=== PATIENT | male | born 1955 | race Caucasian/White ===

== ENCOUNTER 2020-10-11 18:36 | Observation (INO) | payer MEDICARE, SELFPAY ==
[2020-10-11] VITALS (11 sets, daily range): BP systolic 140–214; BP diastolic 69–100; PULSE 94–113; RESP 15–26; TEMP 36.6; O2SAT 84–97; BMI 27.4
--- NOTE | 2020-10-11 18:48 | XRR_ITS ---
PROCEDURE INFORMATION: Exam: XR Chest Exam date and time: 10/11/2020 6:56 PM Age: 64 years old Clinical indication: Shortness of breath; Additional info: SOB TECHNIQUE: Imaging protocol: XR of the chest. Views: 1 view. Total images: 1 COMPARISON: No relevant prior studies available. FINDINGS: Lungs: No visible active interstitial or alveolar airspace disease. COPD/chronic bronchitis/centrilobular emphysema. Mild senile fibrosis lung bases. Pleural spaces: Unremarkable. No pleural effusion. No pneumothorax. Heart/Mediastinum: Cardiac structures and configuration with evidence of mild microcardia. Bones/joints: Unremarkable. XR/XR chest 1V portable [id number] IMPRESSION: COPD/chronic bronchitis/centrilobular emphysema.
--- NOTE | 2020-10-11 18:51 | ED_ITS ---
HPI - SOB/Dyspnea General: Chief Complaint: Shortness of Breath/Dyspnea Stated Complaint: THEODORE CASTAÑEDA has copd Time Seen by Provider: 10/11/20 18:45 Source: patient Mode of arrival: ambulatory Limitations: no limitations History of Present Illness: HPI Narrative: 64-year-old male who has a history of COPD states has had increasing shortness of breath over the last week with a getting much worse today. He states that today has been feeling very short of breath with any activity. He is requiring 2 L of oxygen here and is tachypneic and wheezing currently. He states he has a rescue inhaler at home. He states that he has had a nonproductive cough and denies any fever. Denies any chest pain. States it has been worse with activity and improved with rest. Associated symptoms: Deny abdominal pain, chest pain, fever(s), nausea or vomiting Review of Systems Const: Denies: fever(s), chills, body aches or change in appetite Eyes: Denies: blurry vision or eye discomfort ENMT: Denies: throat pain or dental pain Card: Denies: chest pain Resp: Reports: dyspnea, non-productive cough and wheezing GI: Denies: abdominal pain, nausea, vomiting or diarrhea : Denies: dysuria Musc: Denies: neck pain or back pain Skin/Breast: Denies: rash Neuro: Denies: headache(s) Psych: Denies: depression [place]/Lymph: Denies: easy bruising All/Imm: Denies: urticaria Physical Exam Const: COMMON NORMALS: no acute distress, patient oriented x3 and healthy appearing HENMT: COMMON NORMALS: normocephalic and atraumatic HEAD & SCALP: normocephalic and atraumatic Eye: COMMON NORMALS: Equal, round and reactive pupils present and EOMs intact bilaterally PUPIL: Yes Equal, round and reactive pupils present Neck/C-Spine: COMMON NORMALS: full ROM and supple Chest: COMMONS NORMALS: normal inspection of the chest and normal palpation of entire chest wall Resp: COMMON NORMALS: No retractions and No use of accessory muscles EFFORT & INSPECTION: Yes tachypneic AUSCULTATION: wheezes Cardio: COMMON NORMALS: regular rate, regular rhythm and No murmurs present (Cardio) RATE: regular rate RHYTHM: regular rhythm GI: COMMON NORMALS: Normal to inspection, nondistended, normoactive bowel sounds present, Soft to palpation, non-tender and no masses PALPATION: Yes Soft to palpation Extremity: COMMON NORMALS: normal to inspection and full ROM Neuro: COMMON NORMALS: patient oriented x3, moves all extremities and no focal motor deficits Psych: COMMON NORMALS: mental status grossly normal, Normal thought process present and cooperative THOUGHT PROCESS: Normal thought process present Skin: COMMON NORMALS: no rashes or lesions noted and no wounds GENERAL SKIN EXAM: no rashes or lesions noted Course Vital Signs: Vital signs: Vital Signs Temperature 97.9 F 10/11/20 18:42 Pulse Rate 107 H 10/11/20 19:57 Respiratory Rate 20 H 10/11/20 19:57 Blood Pressure 154/76 10/11/20 19:57 Pulse Oximetry 94 10/11/20 20:05 MDM - SOB/Dyspnea MDM Narrative: Medical decision making narrative: Patient presents here with a COPD exacerbation. Patient did have quite a bit of wheezing that improved with his initial breathing treatment. I had RT come and ambulate him and he desaturated to 84% and is having wheezing again. I spoke to the hospitalist will admit for observation for continued breathing treatments. His blood work here is normal he has no signs of pneumonia. He has had no chest pain. Lab Data: Labs: Lab Results 10/11/20 10/11/20 Range/Units 18:52 18:52 WBC 9.6 (4.0-10.0) 10^3/ uL RBC 5.71 H (4.1-5.3) 10^6/u L Hgb 17.9 H (11.7-16.6) g/dL Hct 51.5 (42.0-52.0) % MCV 90.2 (80-94) fL MCH 31.3 (28.0-34.0) pg MCHC 34.8 (30.0-36.0) g/dL RDW 13.2 (12.1-15.1) % Plt Count 314 (130-400) 10^3/c mm MPV 10.3 (7.4-10.4) fL Neut % (Auto) 68.0 % Lymph % (Auto) 17.3 % [place] % (Auto) 7.9 % Eos % (Auto) 5.3 % Baso % (Auto) 1.0 % Neut # (Auto) 6.49 (1.8-7.7) 10^3/u L Lymph # (Auto) 1.7 (0.8-4.8) 10^3/u L [place] # (Auto) 0.8 (0.2-0.9) 10^3/u L Eos # (Auto) 0.5 (0.0-0.8) 10^3/u L Baso # (Auto) 0.1 (0.0-0.1) 10^3/u L Nucleated RBC % (a uto) 0 % Nucleated RBCs # 0.0 /100WBC Sodium 138 (136-145) mmol/L Potassium 4.5 (3.5-5.1) mmol/L Chloride 102 (98-107) mmol/L Carbon Dioxide 23 (22-29) mmol/L Anion Gap 17.5 (5-19) BUN 12 (8-23) mg/dL Creatinine 0.6 L (0.7-1.2) mg/dL GFR Calculation 135.2 H (90-130) mL/min Glucose 201 H (65-115) mg/dL Calculated Osmolal ity 291 (285-295) mOsm/k g Calcium 8.7 (8.5-10.5) mg/dL Total Bilirubin 0.3 (0.15-1.2) mg/dL AST 18 (0-40) U/L ALT 29 (0-41) U/L Alkaline Phosphata se 94 (40-130) IU/L NT-Pro-B Natriuret Pep 21 (0-125) pg/mL Total Protein 7.2 (6.6-8.7) g/dL Albumin 4.7 (3.5-5.2) g/dL Globulin 2.5 (1.3-4.6) g/dL Imaging Data^: CXR: Attestation: I personally reviewed and interpreted this imaging study as follows: Radiologist's impression: [address] [address] XRay Report Signed Patient: Kenn Casanova Unit #: [id number] : 1955 Age/Sex: 64 / M ADM Date: 10/11/20 Loc: ER Room/Bed: Attending Dr: Ordering Provider/Ordering MD: Rossana Brown MD Date of Service: 10/11/20 Procedure(s): XR chest 1V portable [id number] Accession Number(s): [id number] Report Number: [id number] PROCEDURE INFORMATION: Exam: XR Chest Exam date and time: 10/11/2020 6:56 PM Age: 64 years old Clinical indication: Shortness of breath; Additional info: SOB TECHNIQUE: Imaging protocol: XR of the chest. Views: 1 view. Total images: 1 COMPARISON: No relevant prior studies available. FINDINGS: Lungs: No visible active interstitial or alveolar airspace disease. COPD/chronic bronchitis/centrilobular emphysema. Mild senile fibrosis lung bases. Pleural spaces: Unremarkable. No pleural effusion. No pneumothorax. Heart/Mediastinum: Cardiac structures and configuration with evidence of mild microcardia. Bones/joints: Unremarkable. XR/XR chest 1V portable [id number] IMPRESSION: COPD/chronic bronchitis/centrilobular emphysema. EKG Data^: EKG 1: Attestation: I personally reviewed and interpreted this EKG as follows: EKG Interpretation Date: 10/11/20 EKG interpretation time: 18:51 Interpretation: nsr hr [address] or t wave abnormalities qrs 92 qtc 383 Discharge Plan Discharge Patient Disposition: Admitted As Inpatient Clinical Impression: COPD exacerbation Condition: Stable Coding Level of Care Code ED Quality Control Engineer for Chg Fwd Exam Comprehensive
[2020-10-11 18:59] LABS: Basophils # 0.1 10^3/uL (0.0-0.1); Eosinophils # 0.5 10^3/uL (0.0-0.8); Eosinophils % 5.3 %; Hematocrit 51.5 % (42.0-52.0); Hemoglobin 17.9 g/dL (11.7-16.6); Lymphocytes # 1.7 10^3/uL (0.8-4.8); Lymphocytes % 17.3 %; Mean Corpuscular HGB Conc 34.8 g/dL (30.0-36.0); Mean Corpuscular Hemoglobin 31.3 pg (28.0-34.0); Mean Corpuscular Volume 90.2 fL (80-94); Mean Platelet Volume 10.3 fL (7.4-10.4); Monocytes # 0.8 10^3/uL (0.2-0.9); Monocytes % 7.9 %; Neutrophils # 6.49 10^3/uL (1.8-7.7); Nucleated Red Blood Cells % 0 %; Platelet Count 314 10^3/cmm (130-400); Red Blood Count 5.71 10^6/uL (4.1-5.3); Red Cell Distribution Width 13.2 % (12.1-15.1); White Blood Count 9.6 10^3/uL (4.0-10.0)
[2020-10-11 19:23] LABS: Alanine Aminotransferase 29 U/L (0-41); Albumin Level 4.7 g/dL (3.5-5.2); Alkaline Phosphatase 94 IU/L (40-130); Anion Gap 17.5 (5-19); Aspartate Amino Transferase 18 U/L (0-40); Blood Urea Nitrogen 12 mg/dL (8-23); Calcium 8.7 mg/dL (8.5-10.5); Carbon Dioxide 23 mmol/L (22-29); Chloride 102 mmol/L (98-107); Globulin 2.5 g/dL (1.3-4.6); Glomerular Filtration Rate 135.2 mL/min (90-130); Glucose 201 mg/dL (65-115); Osmolality Calculated 291 mOsm/kg (285-295); Potassium 4.5 mmol/L (3.5-5.1); Sodium 138 mmol/L (136-145); Total Bilirubin 0.3 mg/dL (0.15-1.2); Total Protein 7.2 g/dL (6.6-8.7)
[2020-10-11] MEDS: ipratropium-albuterol 3 mL Neb INHALATION (19:26)
[2020-10-11 19:29] LABS: NT Pro B Type Natriuretic Pept 21 pg/mL (0-125)
--- NOTE | 2020-10-11 20:52 | P.HP_ITS ---
Providers/Chief Complaint Admitting Physician: Sheeba Lagos MD Primary Care Provider: Amber in [facility] Chief Complaint: SOB, PT has copd History of Present Illness Kenn Casanova is a 64 year old male who presented to the emergency room chief complaint of difficulty breathing. Symptoms have actually been going on for approximately 3 weeks. He saw his primary care provider on September 29 for similar symptoms of increasing shortness of breath, cough both productive and nonproduc tive, wheezing. PCP started him on Trelegy and a rescue inhaler. In addition he was given 10 days of doxycycline which he completed a couple of days ago. He was not given any steroids. He states his breathing is best in the morning after he takes the Trelegy but then is worse later in the day. He has known COPD that was diagnosed approximately 15 years ago when he quit smoking. He had been on Spiriva and albuterol as needed in the past but had not been taking either of them. He has never required hospitalization for anything, an ER visit or even had an IV. He is never required any oxygen. Sputum is sometimes clear sometimes greenish in color. Denies any hemoptysis. No pleuritic pain. He does describe increasing difficulty with shortness of breath on exertion over the last 2 years or so. Approximately 2 years ago he could walk about 200 feet before starting to feel short of breath. It is now down to about 100 feet and the last few weeks has been even less than that. He does not describe any chest pain. The progressive difficulty with exertion has limited his activity some. He denies any fevers. He has not had Covid, Covid vaccination or known exposure to anyone with Covid. He occasionally has some swelling in his ankles but denies significant orthopnea or PND. He does have nocturia 2-3 times a night. In the emergency room he received continuous breathing treatment and 125 mg of Solu-Medrol and clinically feels significantly better than he has in the last c ouple of weeks from a breathing standpoint. He was noted to have low oxygen levels on arrival to the emergency room in the mid 80s. He was put on 2 L by nasal cannula but after breathing treatment and steroids this was able to be taken off. Room air saturations at rest were okay. With exertion however saturations were again noted to have dropped into the mid 80s. He is being admitted to observation status for continued treatment and further evaluation under the circumstances. Family history includes his father having had quadruple bypass in his 60s. Patient has diabetes mellitus type 2 and dyslipidemia for which she is on statin therapy but no other significant medical history known to date. Review of Systems Const: Denies: fever(s), chills or change in weight Eyes: Denies: change in vision ENMT: Denies: throat pain or nasal congestion Card: Reports: swelling of feet/ankles and dyspnea on exertion (getting prog ressively worse over time prior to acute events); Denies: chest pain, palpitations, edema, lightheadedness or orthopnea Resp: Reports: dyspnea, productive cough, wheezing and change in phlegm color (green); Denies: pain on inspiration or hemoptysis GI: Denies: abdominal pain, nausea, vomiting, diarrhea, constipation, hematochezia or melena : Reports: urinary frequency and other (nocturia x 2-3); Denies: hematuria Musc: Denies: other (complaints of joint or muscle pain) Skin/Breast: Denies: rash or sores Neuro: Denies: headache(s), numbness in extremities or difficulty walking Psych: Denies: anxiety or depression [place]/Lymph: Denies: easy bruising or easy bleeding Medications/Allergies Home Medications Medication Instructions Recorded Confirmed Last Taken Type albuterol sulfate [ProAir HFA] 2 puff INHALATION Q4H PRN 10/11/20 10/11/20 10/11/20 History aspirin [Aspir-81] 81 mg PO DAILY@69910/11/20 10/11/20 10/11/20 History atorvastatin 10 mg PO DAILY@199910/11/20 10/11/20 10/10/20 History coQ10 (ubiquinol) 200 mg PO DAILY@199910/11/20 10/11/20 10/10/20 History mvhvtwxgfsi-wllvspvov-aaujmkom 1 inh INHALATION DAILY@69910/11/20 10/11/20 10/11/20 History [Clydelewili Ellipta] insulin glargine U-300 conc 36 unit SUBCUT DAILY@69910/11/20 10/11/20 10/11/20 History [Ruthy SoloStar U-300 Insulin] insulin lispro [Humalog KwikPen 14 - 16 unit SUBCUT TID 10/11/20 10/11/20 History Insulin] uuckusyh-ugu-cwcfj-vit K-lycop 1 tab PO DAILY@0700 10/11/20 10/11/20 10/11/20 History [Men's 50 Plus Multivitamin] Allergies Allergy/AdvReac Type Severity Reaction Status Date / Time No Known Allergies Allergy Verified 10/11/20 18:50 Additional Medication Information I personally reviewed home medication list and medications received day of admission thus far. PFSH Acute PFSH: Medical History (Updated 10/12/20 @ 02:26 by Sheeba Lagos MD) COPD (chronic obstructive pulmonary disease) Diabetes mellitus, type II Hyperlipidemia Surgical History (Updated 10/11/20 @ 21:04 by Sheeba Lagos MD) No history of previous surgery (10/11/20) Family History (Updated 10/11/20 @ 21:07 by Sheeba Lagos MD) Father CAD (coronary artery disease) 60s quadruple bypass Myelodysplasia (myelodysplastic syndrome) Mother Pacemaker Grandmother Diabetes Denies family history of Lung disease Social History (Updated 10/11/20 @ 21:08 by Sheeba Lagos MD) Smoking and tobacco status: former smoker Alcohol intake: current Alcohol intake frequency: few times a week Alcohol type: beer Substance/Drug Use: never Household members: spouse Marital status: Vitals/I&O/Wt Last Vital Signs Temp 97.9 F 10/11/20 18:42 Pulse 108 H 10/11/20 20:34 Resp 22 H 10/11/20 20:34 BP 140/86 10/11/20 20:34 Pulse Ox 97 10/11/20 20:34 Weight last 48 hrs Weight 77.111 kg Physical Exam Narrative: EXAM NARRATIVE: Constitutional: Awake and alert, oriented x3 HEENT: Normocephalic, atraumatic, pupils are equally reactive, sclera anicteric, nasopharynx is clear, oropharynx is clear with moist mucous membranes Neck: Supple, no lymphadenopathy or JVD Respiratory: Currently clear to auscultation presently, no rales rhonchi or wheezes noted, mildly tachypneic Cardiovascular: Regular rate and rhythm, no murmurs gallops or rubs Abdomen: Soft, nontender, nondistended : Deferred Extremities: No pitting edema or acute synovitis Skin: No acute rashes or sores noted Neuro: Face is symmetric, speech clear, handgrip equal, moves all extremities Psych: Normal affect Data : 10/11/20 18:52 10/11/20 18:52 Other data: Labs: Laboratory Results WBC 9.6 10^3/uL (4.0-10.0) 10/11/20 18:52 RBC 5.71 10^6/uL (4.1-5.3) H 10/11/20 18:52 Hgb 17.9 g/dL (11.7-16.6) H 10/11/20 18:52 Hct 51.5 % (42.0-52.0) 10/11/20 18:52 MCV 90.2 fL (80-94) 10/11/20 18:52 MCH 31.3 pg (28.0-34.0) 10/11/20 18:52 MCHC 34.8 g/dL (30.0-36.0) 10/11/20 18:52 RDW 13.2 % (12.1-15.1) 10/11/20 18:52 Plt Count 314 10^3/cmm (130-400) 10/11/20 18:52 MPV 10.3 fL (7.4-10.4) 10/11/20 18:52 Neut % (Auto) 68.0 % 10/11/20 18:52 Lymph % (Auto) 17.3 % 10/11/20 18:52 [place] % (Auto) 7.9 % 10/11/20 18:52 Eos % (Auto) 5.3 % 10/11/20 18:52 Baso % (Auto) 1.0 % 10/11/20 18:52 Neut # (Auto) 6.49 10^3/uL (1.8-7.7) 10/11/20 18:52 Lymph # (Auto) 1.7 10^3/uL (0.8-4.8) 10/11/20 18:52 [place] # (Auto) 0.8 10^3/uL (0.2-0.9) 10/11/20 18:52 Eos # (Auto) 0.5 10^3/uL (0.0-0.8) 10/11/20 18:52 Baso # (Auto) 0.1 10^3/uL (0.0-0.1) 10/11/20 18:52 Nucleated RBC % (auto) 0 % 10/11/20 18:52 Nucleated RBCs # 0.0 /100WBC 10/11/20 18:52 Sodium 138 mmol/L (136-145) 10/11/20 18:52 Potassium 4.5 mmol/L (3.5-5.1) 10/11/20 18:52 Chloride 102 mmol/L (98-107) 10/11/20 18:52 Carbon Dioxide 23 mmol/L (22-29) 10/11/20 18:52 Anion Gap 17.5 (5-19) 10/11/20 18:52 BUN 12 mg/dL (8-23) 10/11/20 18:52 Creatinine 0.6 mg/dL (0.7-1.2) L 10/11/20 18:52 GFR Calculation 135.2 mL/min (90-130) H 10/11/20 18:52 Glucose 201 mg/dL (65-115) H 10/11/20 18:52 POC Glucose 333 mg/dL (70-110) H 10/11/20 22:27 Calculated Osmolality 291 mOsm/kg (285-295) 10/11/20 18:52 Calcium 8.7 mg/dL (8.5-10.5) 10/11/20 18:52 Total Bilirubin 0.3 mg/dL (0.15-1.2) 10/11/20 18:52 AST 18 U/L (0-40) 10/11/20 18:52 ALT 29 U/L (0-41) 10/11/20 18:52 Alkaline Phosphatase 94 IU/L (40-130) 10/11/20 18:52 NT-Pro-B Natriuret Pep 21 pg/mL (0-125) 10/11/20 18:52 Total Protein 7.2 g/dL (6.6-8.7) 10/11/20 18:52 Albumin 4.7 g/dL (3.5-5.2) 10/11/20 18:52 Globulin 2.5 g/dL (1.3-4.6) 10/11/20 18:52 Impressions Chest X-Ray 10/11/20 18:48 IMPRESSION: COPD/chronic bronchitis/centrilobular emphysema. EKG: Reportedly done in the emergency room but I do not have access to a copy at moment A&P Assessment and plan (1) COPD exacerbation: First episode of this severity Status: Acute (2) Hypoxemia: Present at rest upon arrival to the emergency room, after steroids and continuous nebulizer treatment was noted only with exertion, not on oxygen at home and has never required any however does has polycythemia noted on labs today Status: Acute (3) Family history of coronary artery disease in father: Father had bypass surgery in his 60s; while patient does not describe episodes of chest pain or classic angina, he does describe exertional dyspnea that has been getting progressively worse over the last 2 years. Status: Acute (4) Diabetes mellitus, type II: Currently with hyperglycemia after steroids in ED Status: Chronic Qualifiers: Diabetes mellitus intermediate insulin use: with intermediate frame tender use Diabetes mellitus complication status: with hyperglycemia Qualified Code(s): E11.65 - Type 2 diabetes mellitus with hyperglycemia; Z79.4 - retirement (current) use of insulin (5) Hyperlipidemia: Chronically on statin primarily due to known diabetes and lipid levels Status: Chronic Qualifiers: Hyperlipidemia type: unspecified Qualified Code(s): E78.5 - Hyperlipidemia, unspecified Additional A&P Information Polycythemia, suspect secondary and could be an indicator of chronic exertional hypoxemia related to COPD which has not been previously noted Observation admission currently Continue home Trelegy inhaler Continue scheduled duoneb treatments as well as as needed; he does not have a nebulizer machine at home so will need device if treatments are prescribed for discharge Continue steroids, monitoring blood sugars for need to adjust dosages of insulin therapy As he just completed a 10-day course of doxycycline I have not continued additional antibiotics Continue oxygen therapy, reevaluate exertional saturations midday tomorrow Check EKG, troponins and echocardiogram Pro-BNP was normal Check A1c and lipid panel Doubt PE but certainly within differential, will check ABG and D-dimer, hold on imaging consideration currently until evaluate cardiac status a bit further Continue home Tujeo and sliding scale insulin Continue home statin and aspirin Consider pulmonary rehab referral Pepcid for GI prophylaxis DVT prophylaxis: Lovenox Plans, findings and concerns discussed with patient and and they were given an opportunity to ask questions. Anticipated Disposition: home, possibly with oxygen Code Status: full Attestations Medical Necessity Statement*: Currently anticipate an observation stay of 1-2 midnights in this Medicare advantage patient who is currently requiring oxygen. This is patient's first episode of COPD exacerbation and need for oxygen that has been documented. He has improved significantly with steroids and continuous nebulizer treatment administered in the emergency room but was noted to have exertional hypoxemia. Saturations were stable at rest. Not known to have chronic exertional hypoxemia though it is certainly a possibility with polycythemia noted on laboratory studies. Hopefully however with steroids and pulmonary toilet he will have sufficient clinical improvement to not require oxygen replacement upon discharge. In addition to pulmonary because of patient's symptoms with his known family history and diabetes, also evaluating for possible cardiac contributor to his symptomatology Coding Level of Care Code Acute Transplant Rn for Steph Brambila Diagnoses COPD exacerbation J44.1 Hypoxemia R09.02 Family history of coronary artery disease in father Z82.49 Diabetes mellitus, type II E11.65; Z79.4 Diabetes mellitus intermediate frame tender insulin use: with intermediate use Diabetes mellitus complication status: with hyperglycemia Hyperlipidemia E78.5 Hyperlipidemia type: unspecified
[2020-10-11 22:32] LABS: Glucose Point of Care 333 mg/dL (70-110)
[2020-10-11] MEDS: enoxaparin 40 mg/0.4 mL Syringe SUBCUT (22:36)
[2020-10-11] MEDS: atorvastatin 40 mg Tablet 10 MG PO (22:38)
[2020-10-12] VITALS (13 sets, daily range): BP systolic 110–163; BP diastolic 71–80; PULSE 86–102; RESP 16–19; TEMP 36.4–37.2; O2SAT 93–96
[2020-10-12] MEDS: sodium chlor 0.9% + KCl 20 mEq 20 MEQ/1,000 ML BAG 75 MEQ IV (02:42)
[2020-10-12 03:41] LABS: ABG PCO2 38.6 mmHg (35-45); ABG PH Result 7.38 (7.35-7.45); Arterial Blood Gas Hematocrit 51.4 % (42-52); Base Excess ABG -2.4 mmol/L (-2.0-2.0); Blood Gas Allen Test Pos; Blood Gas Sample Site Radial, left; Blood Gas Sample Type Arterial; HCO3 ABG 22.5 mmol/L (22-26); Oxygen Device NC; PO2 ABG 80.1 mmHg (80.0-100.0)
--- NOTE | 2020-10-12 04:00 | ECG_ITS ---
[facility] Test Date: 2020-10-11 Pat Name: Kenn Casanova Department: Room: 279 Gender: Male Clinical Engineering Manager: : 1955 Requested By: Sheeba Lagos Order Number: [id number] Dennis MD: Ryan Mercado M.D. Measurements Intervals [place] Rate: 91 P: 67 AR: 136 QRS: 96 QRSD: 92 T: 67 QT: 334 QTc: 413 Interpretive Statements SINUS RHYTHM BORDERLINE RIGHT AXIS DEVIATION [QRS AXIS > 90] No previous ECG available for comparison Electronically Signed On 10-12-2020 17:08:33 CDT by Ryan Mercado M.D. [id number]
[2020-10-12 05:42] LABS: Basophils % 0.1 %; Eosinophils % 0.1 %; Hematocrit 49.5 % (42.0-52.0); Hemoglobin 16.4 g/dL (11.7-16.6); Lymphocytes # 0.5 10^3/uL (0.8-4.8); Mean Corpuscular HGB Conc 33.1 g/dL (30.0-36.0); Mean Corpuscular Hemoglobin 30.9 pg (28.0-34.0); Mean Corpuscular Volume 93.4 fL (80-94); Monocytes # 0.1 10^3/uL (0.2-0.9); Monocytes % 0.4 %; Neutrophils # 12.81 10^3/uL (1.8-7.7); Neutrophils % 94.7 %; Nucleated Red Blood Cells % 0 %; Platelet Count 277 10^3/cmm (130-400); Red Cell Distribution Width 13.3 % (12.1-15.1); White Blood Count 13.5 10^3/uL (4.0-10.0)
--- NOTE | 2020-10-12 05:43 | PC.NURSE ---
Shift Summary Patient rested well throughout the night on 2 liters nasal cannula. Patient denies any pain and denied any shortness of breath or chest pain during this shift.
[2020-10-12 05:56] LABS: D Dimer <= 0.27 ug/mIFEU (0-0.59)
[2020-10-12 05:57] LABS: Troponin(5th) Baseline 6 ng/L (0-15)
--- NOTE | 2020-10-12 06:00 | USCV_ITS ---
Kenn Casanova Age: 64 Gender: M : 1955 Exam Date: 10/12/2020 05:28 Ordering Phys: Sheeba Lagos MD Technologist: Jeanie Osborne [place] [facility] [place]: DYSPNEA BP: 149 / 75 HR: 91 Rhythm: Sinus Technical Quality: Adequate MEASUREMENTS (Male / Female) Normal Values 2D ECHO LV Diastolic Diameter PLAX 3.1 cm 4.2 - 5.9 / 3.9 - 5.3 cm LV Systolic Diameter PLAX 2.9 cm LV Chamber Size 3.1 cm IVS Diastolic Thickness 1.1 cm 0.6 - 1.0 / 0.6 - 0.9 cm IVS Systolic Thickness 1.5 cm LVPW Diastolic Thickness 1.4 cm 0.6 - 1.0 / 0.6 - 0.9 cm LVPW Systolic Thickness 1.3 cm RV Chamber Size 3.7 cm LVOT Diameter 2.1 cm LV Ejection Fraction 2D Teich 16.2 % LV Ejection Fraction MOD 2C 46.2 % LV Ejection Fraction 2C AL 47.6 % LA Diameter 2.7 cm LA Width 3.0 cm LA Height 3.5 cm RA Width 3.9 cm RA Height 4.2 cm Aorta at Sinotubular Diameter 3.3 cm M-MODE LV Diastolic Diameter MM 5.7 cm 4.2 - 5.9 / 3.9 - 5.3 cm LV Systolic Diameter MM 3.3 cm LV Ejection Fraction MM Teich 72.6 % IVS Diastolic Thickness MM 1.0 cm 0.6 - 1.0 / 0.6 - 0.9 cm IVS Systolic Thickness MM 1.7 cm LVPW Diastolic Thickness MM 1.2 cm 0.6 - 1.0 / 0.6 - 0.9 cm LVPW Systolic Thickness MM 2.0 cm Aortic Annulus Diameter 4.2 cm LA Ao Ratio MM 0.8 MV E Point Septal Separation 0.3 cm DOPPLER AV Peak Velocity 157.0 cm/s LVOT Peak Velocity 100.0 cm/s AV Area Cont Eq vti 2.6 cm squared AV Area Cont Eq pk 2.2 cm squared MV Area PHT 4.2 cm squared Mitral E to A Ratio 0.9 MV E' Velocity 49.0 cm/s Mitral E to MV E' Ratio 9.5 Mitral E to LV E' Lateral Ratio 7.6 Mitral E to LV E' Septal Ratio 12.9 TR Peak Velocity 167.1 cm/s TR Peak Gradient 11.2 mmHg TR Mean Velocity 141.7 cm/s TR Mean Gradient 8.5 mmHg TR Velocity Time Integral 42.5 cm TV Peak E Velocity 90.0 cm/s PV Peak Velocity 80.0 cm/s RV Acceleration Time 0.1 s RV Ejection Time 0.3 s RV AcT/ET 0.4 FINDINGS Left Ventricle Normal left ventricular size, systolic function and wall thickness, with no regional wall motion abnormalities. Left ventricular ejection fraction is estimated at 70 %. Grade I diastolic dysfunction (abnormal relaxation filling pattern), normal to mildly elevated filling pressures. Right Ventricle Normal right ventricular size and systolic function, RVSP 14 mmHg. Right Atrium Normal right atrial size. Right atrial pressure estimated at 3 mmHg. Left Atrium Normal left atrial size. Mitral Valve Structurally normal mitral valve. No mitral valve stenosis. No mitral valve regurgitation. Aortic Valve Structurally normal trileaflet aortic valve. No aortic valve stenosis. No aortic valve regurgitation. Tricuspid Valve Structurally normal tricuspid valve. Trace tricuspid valve regurgitation. Pulmonic Valve Pulmonic valve not well visualized. No pulmonary valve stenosis. Pericardium No pericardial effusion. Aorta Normal-sized aortic root. Normal-sized inferior vena cava. CONCLUSIONS 1. Normal left ventricular size, systolic function and wall thickness, with no regional wall motion abnormalities. Left ventricular ejection fraction is estimated at 70 %. Grade I diastolic dysfunction (abnormal relaxation filling pattern), normal to mildly elevated filling pressures. 2. Normal right ventricular size and systolic function. 3. No significant valvular abnormality. 4. Normal pulmonary artery pressure. 5. No prior similar studies to compare. Lilian Kendrick MD (Electronically Signed) Final Date: 12 October 2020 13:49 S
[2020-10-12 06:02] LABS: Estmated Average Glucose 189; Hemoglobin A1C 8.2 % (4.0-6.0)
[2020-10-12 06:03] LABS: Chol HDL Ratio 2.25 mg/dL (1.0-5.00); Cholesterol 128 mg/dL (0-200); HDL Cholesterol 57 mg/dL (60-100); LDL Cholesterol Calculated 64 mg/dL (50-129); LDL HDL Ratio 1.12 RATIO (0.00-3.22); Triglycerides 37 mg/dL (0-150)
[2020-10-12] MEDS: aspirin 81 mg EC Tablet PO (06:39)
[2020-10-12 06:42] LABS: Glucose Point of Care 354 mg/dL (70-110)
[2020-10-12 08:05] LABS: Troponin 5 2HR Delta 0 ABS# (0-10)
[2020-10-12] MEDS: ipratropium-albuterol 3 mL Neb INHALATION ×2 (08:08)
[2020-10-12] MEDS: famotidine 20 mg Tablet PO (08:37)
[2020-10-12] MEDS: predniSONE 20 mg Tablet 40 MG PO (08:37)
--- NOTE | 2020-10-12 10:00 | ECG_ITS ---
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 Measurements Intervals [place] Rate: 95 P: 70 [place]: 151 QRS: 87 QRSD: 87 T: 47 QT: 348 QTc: 439 Interpretive Statements SINUS RHYTHM Compared to ECG 10/11/2020 18:51:36 No significant changes Electronically Signed On 10-13-2020 16:33:46 CDT by Lilian Kendrick M.D. [email or web address].[email or web address]/store/[id number]
[2020-10-12 10:55] LABS: Troponin 5 6HR 7.35 ng/L (0-15); Troponin 5 6HR Delta 1.35 ng/L (0-12)
[2020-10-12 11:04] LABS: Glucose Point of Care 388 mg/dL (70-110)
[2020-10-12 11:07] LABS: Glucose Point of Care 376 mg/dL (70-110)
[2020-10-12 15:19] LABS: SARS Covid-2 Antigen Negative (Negative)
--- NOTE | 2020-10-12 15:40 | P.DS_ITS ---
Discharge Providers Date of Admission: 10/11/20 21:32 Date of Discharge: October 12, 2020 Attending Provider at Admission: Sheeba Lagso MD Attending Provider at Discharge: Simi Patiño MD Diagnoses at Discharge Discharge Diagnosis (1) COPD exacerbation: Status: Acute (2) Hypoxemia: Status: Acute (3) Family history of coronary artery disease in father: Status: Acute (4) Diabetes mellitus, type II: Status: Chronic Qualifiers: Diabetes mellitus correction insulin use: with correction use Diabetes mellitus complication status: with hyperglycemia Qualified Code(s): E11.65 - Type 2 diabetes mellitus with hyperglycemia; Z79.4 - custodial (current) use of insulin (5) Hyperlipidemia: Status: Chronic Qualifiers: Hyperlipidemia type: unspecified Qualified Code(s): E78.5 - Hyperlipidemia, unspecified Reason for Visit Reason for Visit: SOB, PT has copd Hospital Course Hospital Course Kenn Casanova is a 64 year old male who presented to the emergency room chief complaint of difficulty breathing. He has known COPD currently on Trelegy inhaler. In the emergency room he received continuous breathing treatment and 125 mg of Solu-Medrol and clinically feels significantly better than he has in the last couple of weeks from a breathing standpoint. He was noted to have low oxygen levels on arrival to the emergency room in the mid 80s. He qualified for home oxygen and the same has been arranged at discharge. D dimer was negative, low concern for PE. Rapid Covid Ag was negative. He is being discharged today in stable condiiton with a steroid taper and recommendations to continue Trelegy and albuterol inhalers Physical Exam Narrative: EXAM NARRATIVE: GEN: Awake, alert and oriented, no acute distress CVS: S1S2 N RS: CTA B/L Abd: Soft, nt/nd , bs+ [place] ATTENDANT: no focal neuro deficits Discharge Data Data Completed and Pending: Completed Studies During Hospitalization Category Date Time Status XR chest 1V ace ble [id number] Urgent Exams 10/11/20 18:48 Completed CV echo complete* [id number] Routine Ultrasound 10/12/20 06:00 Completed Labs from last 24 hours 10/12/20 10/12/20 10/12/20 14:40 11:04 10:59 WBC RBC Hgb Hct MCV MCH MCHC RDW Plt Count MPV Neut % (Auto) Lymph % (Auto) [place] % (Auto) Eos % (Auto) Baso % (Auto) Neut # (Auto) Lymph # (Auto) [place] # (Auto) Eos # (Auto) Baso # (Auto) Nucleated RBC % (a uto) Nucleated RBCs # D-Dimer Specimen Type Sample Site ABG pH ABG pCO2 ABG pO2 ABG HCO3 ABG Base Excess Kana Test Hematocrit O2 Delivery Device O2 Liters/Min Safety Lead ID Sodium Potassium Chloride Carbon Dioxide Anion Gap BUN Creatinine GFR Calculation Glucose POC Glucose 376 H 388 H Estimat Average Gl ucose Hemoglobin A1c Calculated Osmolal ity Calcium Total Bilirubin AST ALT Alkaline Phosphata se Troponin T Baselin e Troponin T 120 Min [place] Delta Troponin T Troponin T Hi Sens 6Hr Troponin T Hi Sens 6Hr Delta NT-Pro-B Natriuret Pep Total Protein Albumin Globulin Triglycerides Cholesterol LDL Cholesterol, C alc HDL Cholesterol LDL/HDL Ratio Cholesterol/HDL Ra kassi SARS-CoV-2 Ag (Rap id) Negative 10/12/20 10/12/20 10/12/20 10:00 07:33 06:27 WBC RBC Hgb Hct MCV MCH MCHC RDW Plt Count MPV Neut % (Auto) Lymph % (Auto) [place] % (Auto) Eos % (Auto) Baso % (Auto) Neut # (Auto) Lymph # (Auto) [place] # (Auto) Eos # (Auto) Baso # (Auto) Nucleated RBC % (a uto) Nucleated RBCs # D-Dimer Specimen Type Sample Site ABG pH ABG pCO2 ABG pO2 ABG HCO3 ABG Base Excess Kana Test Hematocrit O2 Delivery Device O2 Liters/Min Safety Lead ID Sodium Potassium Chloride Carbon Dioxide Anion Gap BUN Creatinine GFR Calculation Glucose POC Glucose 354 H Estimat Average Gl ucose Hemoglobin A1c Calculated Osmolal ity Calcium Total Bilirubin AST ALT Alkaline Phosphata se Troponin T Baselin e Troponin T 120 Min [place] 6.00 Delta Troponin T 0 Troponin T Hi Sens 6Hr 7.35 Troponin T Hi Sens 6Hr Delta 1.35 NT-Pro-B Natriuret Pep Total Protein Albumin Globulin Triglycerides Cholesterol LDL Cholesterol, C alc HDL Cholesterol LDL/HDL Ratio Cholesterol/HDL Ra kassi SARS-CoV-2 Ag (Rap id) 10/12/20 10/12/20 10/12/20 05:10 05:10 05:10 WBC 13.5 H RBC 5.30 Hgb 16.4 Hct 49.5 MCV 93.4 MCH 30.9 MCHC 33.1 RDW 13.3 Plt Count 277 MPV 11.0 H Neut % (Auto) 94.7 Lymph % (Auto) 4.0 [place] % (Auto) 0.4 Eos % (Auto) 0.1 Baso % (Auto) 0.1 Neut # (Auto) 12.81 H Lymph # (Auto) 0.5 L [place] # (Auto) 0.1 L Eos # (Auto) 0.0 Baso # (Auto) 0.0 Nucleated RBC % (a uto) 0 Nucleated RBCs # 0.0 D-Dimer <= 0.27 Specimen Type Sample Site ABG pH ABG pCO2 ABG pO2 ABG HCO3 ABG Base Excess Kana Test Hematocrit O2 Delivery Device O2 Liters/Min Safety Lead ID Sodium Potassium Chloride Carbon Dioxide Anion Gap BUN Creatinine GFR Calculation Glucose POC Glucose Estimat Average Gl ucose Hemoglobin A1c Calculated Osmolal ity Calcium Total Bilirubin AST ALT Alkaline Phosphata se Troponin T Baselin e 6 Troponin T 120 Min [place] Delta Troponin T Troponin T Hi Sens 6Hr Troponin T Hi Sens 6Hr Delta NT-Pro-B Natriuret Pep Total Protein Albumin Globulin Triglycerides Cholesterol LDL Cholesterol, C alc HDL Cholesterol LDL/HDL Ratio Cholesterol/HDL Ra kassi SARS-CoV-2 Ag (Rap id) 10/12/20 10/12/20 10/12/20 05:10 05:10 03:35 WBC RBC Hgb Hct MCV MCH MCHC RDW Plt Count MPV Neut % (Auto) Lymph % (Auto) [place] % (Auto) Eos % (Auto) Baso % (Auto) Neut # (Auto) Lymph # (Auto) [place] # (Auto) Eos # (Auto) Baso # (Auto) Nucleated RBC % (a uto) Nucleated RBCs # D-Dimer Specimen Type Arterial Sample Site Radial, left ABG pH 7.38 ABG pCO2 38.6 ABG pO2 80.1 ABG HCO3 22.5 ABG Base Excess -2.4 L Kana Test Pos Hematocrit 51.4 O2 Delivery Device Nc O2 Liters/Min 2.0 Safety Lead ID ellpe Sodium Potassium Chloride Carbon Dioxide Anion Gap BUN Creatinine GFR Calculation Glucose POC Glucose Estimat Average Gl ucose 189 Hemoglobin A1c 8.2 H Calculated Osmolal ity Calcium Total Bilirubin AST ALT Alkaline Phosphata se Troponin T Baselin e Troponin T 120 Min [place] Delta Troponin T Troponin T Hi Sens 6Hr Troponin T Hi Sens 6Hr [place] NT-Pro-B Natriuret Pep Total Protein Albumin Globulin Triglycerides 37 Cholesterol 128 LDL Cholesterol, C alc 64 HDL Cholesterol 57 L LDL/HDL Ratio 1.12 Cholesterol/HDL Ra kassi 2.25 SARS-CoV-2 Ag (Rap id) 10/11/20 10/11/20 10/11/20 22:27 18:52 18:52 WBC 9.6 RBC 5.71 H Hgb 17.9 H Hct 51.5 MCV 90.2 MCH 31.3 MCHC 34.8 RDW 13.2 Plt Count 314 MPV 10.3 Neut % (Auto) 68.0 Lymph % (Auto) 17.3 [place] % (Auto) 7.9 Eos % (Auto) 5.3 Baso % (Auto) 1.0 Neut # (Auto) 6.49 Lymph # (Auto) 1.7 [place] # (Auto) 0.8 Eos # (Auto) 0.5 Baso # (Auto) 0.1 Nucleated RBC % (a uto) 0 Nucleated RBCs # 0.0 D-Dimer Specimen Type Sample Site ABG pH ABG pCO2 ABG pO2 ABG HCO3 ABG Base Excess Kana Test Hematocrit O2 Delivery Device O2 Liters/Min Safety Lead ID Sodium 138 Potassium 4.5 Chloride 102 Carbon Dioxide 23 Anion Gap 17.5 BUN 12 Creatinine 0.6 L GFR Calculation 135.2 H Glucose 201 H POC Glucose 333 H Estimat Average Gl ucose Hemoglobin A1c Calculated Osmolal ity 291 Calcium 8.7 Total Bilirubin 0.3 AST 18 ALT 29 Alkaline Phosphata se 94 Troponin T Baselin e Troponin T 120 Min [place] Troponin T Troponin T Hi Sens 6Hr Troponin T Hi Sens 6Hr [place] NT-Pro-B Natriuret Pep 21 Total Protein 7.2 Albumin 4.7 Globulin 2.5 Triglycerides Cholesterol LDL Cholesterol, C alc HDL Cholesterol LDL/HDL Ratio Cholesterol/HDL Ra kassi SARS-CoV-2 Ag (Rap id) Vitals: Last Vital Signs Temp 97.7 F 10/12/20 12:00 Pulse 90 10/12/20 14:00 Resp 16 10/12/20 12:00 BP 163/79 10/12/20 12:00 Pulse Ox 94 10/12/20 12:00 Discharge Plan Discharge Patient Disposition: Home Condition: Stable Prescriptions: New prednisone 10 mg tablets,dose pack See Rx Instructions .ROUTE .COMPLEX Qty: 21 RF: 0 Continued atorvastatin 10 mg tablet 10 mg PO DAILY@1999 RF: 0 Aspir-81 81 mg Tablet,Delayed Release (Dr/Ec) 81 mg PO DAILY@0700 RF: 0 ProAir HFA 90 mcg/actuation HFA aerosol inhaler 2 puff INHALATION Q4H PRN (Reason: Wheezing) RF: 0 Humalog KwikPen Insulin 100 unit/mL insulin pen 14 - 16 unit SUBCUT TID RF: 0 coQ10 (ubiquinol) 200 mg Capsule 200 mg PO DAILY@1999 RF: 0 Men's 50 Plus Multivitamin 400-20-370 mcg Tablet 1 tab PO DAILY@0700 RF: 0 Toujeo SoloStar U-300 Insulin 300 unit/mL (1.5 mL) insulin pen 36 unit SUBCUT DAILY@0700 RF: 0 Trelegy Ellipta 100-62.5-25 mcg blister with device 1 inh INHALATION DAILY@0700 RF: 0 Discharge Orders: Discharge Order (Routine); Ordered 10/12/20 Ordered By: Simi Patiño Other Ambulatory Orders: DME: Oxygen (Order) Location: None Selected Ordered By: Simi Patiño Discharge Diet: Usual diet Discharge Activity: Resume usual activity Patient Instructions: Opioid Safety Discharge Attestations Time Spent in Discharge Care*: less than 30 min Quality Metrics Clinical Quality Measures During this hospital stay, did patient experience: None Coding Level of Care Code Acute [facility] note Diagnoses COPD exacerbation J44.1 Hypoxemia R09.02 Family history of coronary artery disease in father Z82.49 Diabetes mellitus, type II E11.65; Z79.4 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
--- NOTE | 2020-10-13 15:29 | PC.RESP ---
PULMONARY REHAB INFORMATION SENT TO PATIENT.
== END 2020-10-12 17:02 | disposition home or self-care (01) ==
LOC: ER 20:07 → MEDSURG 10-12 06:24
PROVIDERS: Admitting Provider Hospitalist; Emergency Provider Emergency Medicine; Visit Provider Student in an Organized Health Care Education/Training Program
DX: J44.1 Chronic obstructive pulmonary disease with (acute) exacerbation (principal); R09.02 Hypoxemia; Z82.49 Family history of ischemic heart disease and other diseases of the circulatory system; E11.65 Type 2 diabetes mellitus with hyperglycemia; Z79.4 Long term (current) use of insulin; E78.5 Hyperlipidemia, unspecified; Z83.3 Family history of diabetes mellitus; Z87.891 Personal history of nicotine dependence
CPT/HCPCS: 36415; 36416; 36600; 71045; 80053; 80061; 82803; 82962; 83036; 83880; 84484; 85025; 85378; 87426; 93005; 93306; 94640; 94664; 96365; 96366; 96372; 96375; 99285; G0378; J1650; J1815; J2920; J2930; J7512; J7611

== ENCOUNTER 2020-10-27 05:18 | Observation (INO) | payer MEDICARE, SELFPAY ==
[2020-10-27] VITALS (18 sets, daily range): BP systolic 123–185; BP diastolic 64–113; PULSE 11–122; RESP 15–26; TEMP 36.8–36.9; O2SAT 90–98; BMI 28.2
--- NOTE | 2020-10-27 05:31 | XRR_ITS ---
PROCEDURE INFORMATION: Exam: XR Chest Exam date and time: 10/27/2020 5:31 AM Age: 64 years old Clinical indication: Shortness of breath; Patient HX: SOB. History of copd. TECHNIQUE: Imaging protocol: XR of the chest. Views: 1 view. COMPARISON: CR (CHEST, ) 10/11/2020 7:01 PM FINDINGS: Lungs: Hyperinflation of the lungs with changes of COPD/emphysema. Increasing right lateral lung base airspace opacity which may represent atelectasis or other infiltrates. Pleural spaces: Unremarkable. No pleural effusion. No pneumothorax. Heart/Mediastinum: No cardiomegaly. Bones/joints: No acute fracture. XR/XR chest 1V portable [id number] IMPRESSION: Increasing right lateral lung base airspace opacity which may represent atelectasis or other infiltrates.
--- NOTE | 2020-10-27 05:31 | ECG_ITS ---
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 Measurements Intervals [place] Rate: 96 P: 80 [place]: 162 QRS: 91 QRSD: 94 T: 67 QT: 341 QTc: 432 Interpretive Statements SINUS RHYTHM BORDERLINE RIGHT AXIS DEVIATION [QRS AXIS > 90] Compared to ECG 10/12/2020 11:04:20 No significant changes Electronically Signed On 10-27-2020 20:04:34 CDT by Chen Barnes M.D. [id number]
--- NOTE | 2020-10-27 05:32 | ED_ITS ---
Documented by User: Rossana Brown MD 10/27/20 05:35 HPI - SOB/Dyspnea General: Chief Complaint: Shortness of Breath/Dyspnea Stated Complaint: COPD trouble breathing Time Seen by Provider: 10/27/20 05:28 Source: patient Mode of arrival: ambulatory Limitations: no limitations History of Present Illness: HPI Narrative: 64-year-old male has history of [place] PD. He was just recently started on nebulizers and states he got his nebulizer machine yesterday. He was discharged from the hospital here 2 weeks ago and at that time was started on 2 L of oxygen when he was discharged home. He states he was discharged on steroids as well and has since finished that course. He states over last 2 days has had increasing shortness of breath and wheezing with a getting worse this morning. Patient states he has been wearing 4 L at night since discharge and he is currently requiring 4 L here to be 96%. He states is worse with walking and improved with rest. Associated symptoms: Deny abdominal pain, chest pain, fever(s), nausea or vomiting Review of Systems Const: Denies: fever(s), chills, body aches or change in appetite Eyes: Denies: blurry vision or eye discomfort ENMT: Denies: throat pain or dental pain Card: Denies: chest pain Resp: Reports: non-productive cough and wheezing GI: Denies: abdominal pain, nausea, vomiting or diarrhea : Denies: dysuria Musc: Denies: neck pain or back pain Skin/Breast: Denies: rash Neuro: Denies: headache(s) Psych: Denies: depression [place]/Lymph: Denies: easy bruising All/Imm: Denies: urticaria PFSH ED PFSH: Medical History COPD (chronic obstructive pulmonary disease) Diabetes mellitus, type II Hyperlipidemia Patient reports he was put on statin prophylactically secondary to diabetes Surgical History No history of previous surgery (10/11/20) Family History Father CAD (coronary artery disease) 60s quadruple bypass Myelodysplasia (myelodysplastic syndrome) Mother Pacemaker Grandmother Diabetes Denies family history of Lung disease Social History Smoking and tobacco status: former smoker Alcohol intake: current Alcohol intake frequency: few times a week Alcohol type: beer Household members: spouse Marital status: Physical Exam Const: COMMON NORMALS: no acute distress, patient oriented x3 and healthy appearing HENMT: COMMON NORMALS: normocephalic and atraumatic HEAD & SCALP: normocephalic and atraumatic Eye: COMMON NORMALS: Equal, round and reactive pupils present and EOMs intact bilaterally PUPIL: Yes Equal, round and reactive pupils present Neck/C-Spine: COMMON NORMALS: full ROM and supple Chest: COMMONS NORMALS: normal inspection of the chest and normal palpation of entire chest wall Resp: COMMON NORMALS: normal respiratory effort, No retractions, No use of accessory muscles and clear to auscultation bilaterally EFFORT & INSPECTION: Yes tachypneic AUSCULTATION: clear to auscultation bilaterally and wheezes Cardio: COMMON NORMALS: regular rate, regular rhythm and No murmurs present (Cardio) RATE: regular rate RHYTHM: regular rhythm GI: COMMON NORMALS: Normal to inspection, nondistended, normoactive bowel sounds present, Soft to palpation, non-tender and no masses PALPATION: Yes Soft to palpation Extremity: COMMON NORMALS: normal to inspection and full ROM Neuro: COMMON NORMALS: patient oriented x3, moves all extremities and no focal motor deficits Psych: COMMON NORMALS: mental status grossly normal, Normal thought process present and cooperative THOUGHT PROCESS: Normal thought process present Skin: COMMON NORMALS: no rashes or lesions noted and no wounds GENERAL SKIN EXAM: no rashes or lesions noted Course Vital Signs: Vital signs: Vital Signs Temperature 97.6 F 10/28/20 07:37 Pulse Rate 86 10/28/20 11:18 Respiratory Rate 18 10/28/20 11:12 Blood Pressure 144/75 10/28/20 07:37 Pulse Oximetry 94 10/28/20 11:12 MDM - SOB/Dyspnea Lab Data: Labs: Lab Results 10/27/20 10/27/20 10/27/20 Range/Units 05:30 05:30 05:30 WBC 10.1 H (4.0-10.0) 10^3/ uL RBC 5.38 H (4.1-5.3) 10^6/u L Hgb 16.7 H (11.7-16.6) g/dL Hct 50.5 (42.0-52.0) % MCV 93.9 (80-94) fL MCH 31.0 (28.0-34.0) pg MCHC 33.1 (30.0-36.0) g/dL RDW 12.9 (12.1-15.1) % Plt Count 257 (130-400) 10^3/c mm MPV 10.2 (7.4-10.4) fL Neut % (Auto) 78.1 % Lymph % (Auto) 10.1 % [place] % (Auto) 5.2 % Eos % (Auto) 5.2 % Baso % (Auto) 0.9 % Neut # (Auto) 7.89 H (1.8-7.7) 10^3/u L Lymph # (Auto) 1.0 (0.8-4.8) 10^3/u L [place] # (Auto) 0.5 (0.2-0.9) 10^3/u L Eos # (Auto) 0.5 (0.0-0.8) 10^3/u L Baso # (Auto) 0.1 (0.0-0.1) 10^3/u L Nucleated RBC % (a uto) 0 % Nucleated RBCs # 0.0 /100WBC PT (12.1-14.9) SECO NDS INR (0.8-1.2) Sodium 136 (136-145) mmol/L Potassium 4.3 (3.5-5.1) mmol/L Chloride 100 (98-107) mmol/L Carbon Dioxide 26 (22-29) mmol/L Anion Gap 14.3 (5-19) BUN 10 (8-23) mg/dL Creatinine 0.7 (0.7-1.2) mg/dL GFR Calculation 113.2 (90-130) mL/min Glucose 244 H (65-115) mg/dL Calculated Osmolal ity 289 (285-295) mOsm/k g Calcium 8.4 L (8.5-10.5) mg/dL Total Bilirubin 0.4 (0.15-1.2) mg/dL AST 17 (0-40) U/L ALT 30 (0-41) U/L Alkaline Phosphata se 81 (40-130) IU/L Total Protein 6.9 (6.6-8.7) g/dL Albumin 4.1 (3.5-5.2) g/dL Globulin 2.8 (1.3-4.6) g/dL TSH 1.62 (0.27-4.20) uIU/ mL 10/27/20 Range/Units 05:49 WBC (4.0-10.0) 10^3/ uL RBC (4.1-5.3) 10^6/u L Hgb (11.7-16.6) g/dL Hct (42.0-52.0) % MCV (80-94) fL MCH (28.0-34.0) pg MCHC (30.0-36.0) g/dL RDW (12.1-15.1) % Plt Count (130-400) 10^3/c mm MPV (7.4-10.4) fL Neut % (Auto) % Lymph % (Auto) % [place] % (Auto) % Eos % (Auto) % Baso % (Auto) % Neut # (Auto) (1.8-7.7) 10^3/u L Lymph # (Auto) (0.8-4.8) 10^3/u L [place] # (Auto) (0.2-0.9) 10^3/u L Eos # (Auto) (0.0-0.8) 10^3/u L Baso # (Auto) (0.0-0.1) 10^3/u L Nucleated RBC % (a uto) % Nucleated RBCs # /100WBC PT 13.60 (12.1-14.9) SECO NDS INR 1.01 (0.8-1.2) Sodium (136-145) mmol/L Potassium (3.5-5.1) mmol/L Chloride (98-107) mmol/L Carbon Dioxide (22-29) mmol/L Anion Gap (5-19) BUN (8-23) mg/dL Creatinine (0.7-1.2) mg/dL GFR Calculation (90-130) mL/min Glucose (65-115) mg/dL Calculated Osmolal ity (285-295) mOsm/k g Calcium (8.5-10.5) mg/dL Total Bilirubin (0.15-1.2) mg/dL AST (0-40) U/L ALT (0-41) U/L Alkaline Phosphata se (40-130) IU/L Total Protein (6.6-8.7) g/dL Albumin (3.5-5.2) g/dL Globulin (1.3-4.6) g/dL TSH (0.27-4.20) uIU/ mL EKG Data^: EKG 1: Attestation: I personally reviewed and interpreted this EKG as follows: EKG Interpretation Date: 10/27/20 EKG interpretation time: 05:28 Interpretation: nsr hr [address] or t wave abnormalities qrs 94 qtc 395 Discharge Plan Discharge Patient Disposition: Placed in Observation Admit Provider: Lars Hawkins Clinical Impression: COPD exacerbation Discharge Diet: Diabetic Sign Out Sign Out Data: Patient Sign Out occurred on 10/27/20 at 05:42. Patient's care was discussed, and care was transferred from to Joel Tyson DO. Coding Level of Care Code ED Facial Operator for Chg Fwd Exam Comprehensive Documented by User: Joel Tyson DO 10/30/20 07:09 HPI - SOB/Dyspnea General: Chief Complaint: Shortness of Breath/Dyspnea Stated Complaint: COPD trouble breathing Time Seen by Provider: 10/27/20 05:28 [facility] ED PFSH: Medical History COPD (chronic obstructive pulmonary disease) Diabetes mellitus, type II Hyperlipidemia Patient reports he was put on statin prophylactically secondary to diabetes Surgical History No history of previous surgery (10/11/20) Family History Father CAD (coronary artery disease) 60s quadruple bypass Myelodysplasia (myelodysplastic syndrome) Mother Pacemaker Grandmother Diabetes Denies family history of Lung disease Social History Smoking and tobacco status: former smoker Alcohol intake: current Alcohol intake frequency: few times a week Alcohol type: beer Household members: spouse Marital status: Physical Exam Const: COMMON NORMALS: no acute distress GENERAL APPEARANCE: cooperative and comfortable ORIENTATION/CONSCIOUSNESS: Yes awake, Yes oriented to person, Yes oriented to place and Yes oriented to time HENMT: COMMON NORMALS: normocephalic, atraumatic, hearing grossly normal bilaterally and external ears normal HEAD & SCALP: normocephalic and atraumatic EXTERNAL EAR: Yes external ears normal Neck/C-Spine: COMMON NORMALS: no JVD Resp: COMMON NORMALS: normal respiratory effort, No retractions and No use of accessory muscles AUSCULTATION: rhonchi and wheezes Cardio: COMMON NORMALS: no JVD, regular rate, regular rhythm and No murmurs present (Cardio) RATE: regular rate RHYTHM: regular rhythm GI: COMMON NORMALS: Soft to palpation and No hepatosplenomegaly present AUSCULTATION: Yes normoactive bowel sounds PALPATION: Yes Soft to palpation, No Tenderness to palpation present (GI), No Guarding due to palpation present (GI) and Yes No hepatosplenomegaly present Extremity: COMMON NORMALS: normal to inspection, capillary refill normal, no clubbing, cyanosis or edema, no calf tenderness and no pedal edema Neuro: SENSORIUM/ORIENTATION: Yes oriented to person, Yes oriented to place and Yes oriented to time Skin: COMMON NORMALS: no rashes or lesions noted GENERAL SKIN EXAM: no rashes or lesions noted Course Vital Signs: Vital signs: Vital Signs Temperature 97.6 F 10/28/20 07:37 Pulse Rate 86 10/28/20 11:18 Respiratory Rate 18 10/28/20 11:12 Blood Pressure 144/75 10/28/20 07:37 Pulse Oximetry 94 10/28/20 11:12 MDM - SOB/Dyspnea MDM Narrative: Medical decision making narrative: Assumed care at change of shift patient continues to be tachycardic and hypoxic requiring oxygen. We had looked at sending him home on home O2 however even with O2 when he ambulates in the halls he is tachycardic up to 140. Observation discussed with hospitalist orders written Lab Data: Labs: Lab Results 10/27/20 10/27/20 10/27/20 Range/Units 05:30 05:30 05:30 WBC 10.1 H (4.0-10.0) 10^3/ uL RBC 5.38 H (4.1-5.3) 10^6/u L Hgb 16.7 H (11.7-16.6) g/dL Hct 50.5 (42.0-52.0) % MCV 93.9 (80-94) fL MCH 31.0 (28.0-34.0) pg MCHC 33.1 (30.0-36.0) g/dL RDW 12.9 (12.1-15.1) % Plt Count 257 (130-400) 10^3/c mm MPV 10.2 (7.4-10.4) fL Neut % (Auto) 78.1 % Lymph % (Auto) 10.1 % [place] % (Auto) 5.2 % Eos % (Auto) 5.2 % Baso % (Auto) 0.9 % Neut # (Auto) 7.89 H (1.8-7.7) 10^3/u L Lymph # (Auto) 1.0 (0.8-4.8) 10^3/u L [place] # (Auto) 0.5 (0.2-0.9) 10^3/u L Eos # (Auto) 0.5 (0.0-0.8) 10^3/u L Baso # (Auto) 0.1 (0.0-0.1) 10^3/u L Nucleated RBC % (a uto) 0 % Nucleated RBCs # 0.0 /100WBC PT (12.1-14.9) SECO NDS INR (0.8-1.2) Sodium 136 (136-145) mmol/L Potassium 4.3 (3.5-5.1) mmol/L Chloride 100 (98-107) mmol/L Carbon Dioxide 26 (22-29) mmol/L Anion Gap 14.3 (5-19) BUN 10 (8-23) mg/dL Creatinine 0.7 (0.7-1.2) mg/dL GFR Calculation 113.2 (90-130) mL/min Glucose 244 H (65-115) mg/dL Calculated Osmolal ity 289 (285-295) mOsm/k g Calcium 8.4 L (8.5-10.5) mg/dL Total Bilirubin 0.4 (0.15-1.2) mg/dL AST 17 (0-40) U/L ALT 30 (0-41) U/L Alkaline Phosphata se 81 (40-130) IU/L Total Protein 6.9 (6.6-8.7) g/dL Albumin 4.1 (3.5-5.2) g/dL Globulin 2.8 (1.3-4.6) g/dL TSH 1.62 (0.27-4.20) uIU/ mL 10/27/20 Range/Units 05:49 WBC (4.0-10.0) 10^3/ uL RBC (4.1-5.3) 10^6/u L Hgb (11.7-16.6) g/dL Hct (42.0-52.0) % MCV (80-94) fL MCH (28.0-34.0) pg MCHC (30.0-36.0) g/dL RDW (12.1-15.1) % Plt Count (130-400) 10^3/c mm MPV (7.4-10.4) fL Neut % (Auto) % Lymph % (Auto) % [place] % (Auto) % Eos % (Auto) % Baso % (Auto) % Neut # (Auto) (1.8-7.7) 10^3/u L Lymph # (Auto) (0.8-4.8) 10^3/u L [place] # (Auto) (0.2-0.9) 10^3/u L Eos # (Auto) (0.0-0.8) 10^3/u L Baso # (Auto) (0.0-0.1) 10^3/u L Nucleated RBC % (a uto) % Nucleated RBCs # /100WBC PT 13.60 (12.1-14.9) SECO NDS INR 1.01 (0.8-1.2) Sodium (136-145) mmol/L Potassium (3.5-5.1) mmol/L Chloride (98-107) mmol/L Carbon Dioxide (22-29) mmol/L Anion Gap (5-19) BUN (8-23) mg/dL Creatinine (0.7-1.2) mg/dL GFR Calculation (90-130) mL/min Glucose (65-115) mg/dL Calculated Osmolal ity (285-295) mOsm/k g Calcium (8.5-10.5) mg/dL Total Bilirubin (0.15-1.2) mg/dL AST (0-40) U/L ALT (0-41) U/L Alkaline Phosphata se (40-130) IU/L Total Protein (6.6-8.7) g/dL Albumin (3.5-5.2) g/dL Globulin (1.3-4.6) g/dL TSH (0.27-4.20) uIU/ mL Discharge Plan Discharge Patient Disposition: Placed in Observation Admit Provider: Lars Hawkins Clinical Impression: COPD exacerbation Discharge Diet: Diabetic Sign Out Sign Out Data: Patient Sign Out occurred on 10/27/20 at 05:42. Patient's care was discussed, an d care was transferred from to Joel Tyson DO. Coding Level of Care Code ED Facial Operator for Steph Fwd Exam Comprehensive
[2020-10-27 05:39] LABS: Basophils # 0.1 10^3/uL (0.0-0.1); Basophils % 0.9 %; Eosinophils # 0.5 10^3/uL (0.0-0.8); Eosinophils % 5.2 %; Hematocrit 50.5 % (42.0-52.0); Hemoglobin 16.7 g/dL (11.7-16.6); Lymphocytes % 10.1 %; Mean Corpuscular HGB Conc 33.1 g/dL (30.0-36.0); Mean Corpuscular Volume 93.9 fL (80-94); Mean Platelet Volume 10.2 fL (7.4-10.4); Monocytes # 0.5 10^3/uL (0.2-0.9); Monocytes % 5.2 %; Neutrophils # 7.89 10^3/uL (1.8-7.7); Neutrophils % 78.1 %; Nucleated Red Blood Cells % 0 %; Platelet Count 257 10^3/cmm (130-400); Red Blood Count 5.38 10^6/uL (4.1-5.3); Red Cell Distribution Width 12.9 % (12.1-15.1); White Blood Count 10.1 10^3/uL (4.0-10.0)
[2020-10-27] MEDS: ipratropium-albuterol 3 mL Neb INHALATION (05:50)
[2020-10-27 06:00] LABS: Alanine Aminotransferase 30 U/L (0-41); Albumin Level 4.1 g/dL (3.5-5.2); Alkaline Phosphatase 81 IU/L (40-130); Anion Gap 14.3 (5-19); Aspartate Amino Transferase 17 U/L (0-40); Blood Urea Nitrogen 10 mg/dL (8-23); Calcium 8.4 mg/dL (8.5-10.5); Carbon Dioxide 26 mmol/L (22-29); Chloride 100 mmol/L (98-107); Globulin 2.8 g/dL (1.3-4.6); Glomerular Filtration Rate 113.2 mL/min (90-130); Glucose 244 mg/dL (65-115); Osmolality Calculated 289 mOsm/kg (285-295); Potassium 4.3 mmol/L (3.5-5.1); Sodium 136 mmol/L (136-145); Total Bilirubin 0.4 mg/dL (0.15-1.2); Total Protein 6.9 g/dL (6.6-8.7)
[2020-10-27 06:15] LABS: INR 1.01 (0.8-1.2)
--- NOTE | 2020-10-27 06:17 | PC.NURSE ---
Pt reports feeling much better after med administration and breathing treatment. Pt now on 2L O2 via NC with SATS 99%. Speaking in full sentences, appears in no active distress at this time. Will continue to monitor.
--- NOTE | 2020-10-27 07:13 | PC.RESP ---
91% to 94% 3lpm walking
--- NOTE | 2020-10-27 07:28 | CT_ITS ---
WS: [id number] CT CHEST ANGIOGRAPHY WITH REFORMATS HISTORY: tachycardia/hypoxia TECHNIQUE: Contiguous axial images are obtained through the chest during arterial injection of intrav enous contrast. Images are reconstructed to evaluate the pulmonary arteries. MIP imaging also reviewe d. All CT scans at [facility] use at least one of these dose optimization techniques: aut omated exposure control; mA and/or kV adjustment per patient size (includes targeted exams where dose is matched to clinical indication); or iterative reconstruction. CONTRAST: Omnipaque 350; 95 mL IV. DLP: 1176.63 mGy.cm COMPARISON: None available. Adequate opacification of the central pulmonary arteries. Centrally no pulmonary embolism is identifi ed. Pulmonary artery is mildly enlarged at 3.3 cm. Mild atherosclerosis of aorta but there is no aneu rysm. Mild enlargement of the LEFT heart chambers. No RIGHT heart strain. No pericardial or pleural e ffusion. Marked pulmonary hyperinflation from emphysema. No mass or pneumonia. There are several enlarged lymp h node groups within the chest. AP window lymphadenopathy with the largest diameter of 13 mm. There a re numerous periaortic and AP window lymph nodes. Small paratracheal lymph nodes. Additional bilatera l hilar lymph nodes measuring up to 13 mm in diameter. Larger lymph node cluster measuring 32 x 12 mm along the inferior RIGHT mediastinum. Bronchial wall thickening extends along the RIGHT lower lobe p ulmonary artery. Visualized liver is negative for mass or bile duct dilatation. Visualized gallbladder and adrenal gla nds are normal. There is a small hiatal hernia. CT/CT angio chest PE protcl [id number] IMPRESSION: 1. No pulmonary embolism. 2. Moderate to severe emphysema. No pneumonia. 3. Numerous groups of enlarged lymph nodes within the mediastinum and hilar re gions. May be reactive or neoplastic adenopathy. No pulmonary mass identified. Recommend at least chest CT follow-up in 6-8 weeks to ensure no progression of these lymph node groups.
--- NOTE | 2020-10-27 07:53 | PC.NURSE ---
PATIENT TO CT
[2020-10-27] MEDS: iohexol 350 mg/mL 100 mL Btl IV (08:05)
[2020-10-27] MEDS: levofloxacin-dextrose 5 % 750 MG/150 ML PREMIX 100 MG IV (08:07)
--- NOTE | 2020-10-27 08:50 | P.HP_ITS ---
Providers/Chief Complaint Chief Complaint: COPD trouble breathing History of Present Illness Kenn Casanova is a 64 year old male who presents with complaints of increasing shortness of breath. He was recently hospitalized for a COPD exacerbation from October 11 through October 12 earlier this month. At that time he received steroids, got started on a pulmonary regimen. Prior to that he had been seen in his primary care provider's office and received what it sounds like was doxycycline for 10 days. He reports after his last hospitalization he was feeling better until yesterday when he became very short of breath, especially with exertion. He hears himself audibly wheezing at times. He had no chest discomfort at all. He denies any fever. He has not been exposed to Covid, had Covid, or been vaccinated for Covid. He reports he has been using the Trelegy inhaler as prescribed, and did complete his course of prednisone. He states he has had COPD for at least 15 years, but not required any oxygen until his last hospital stay, and things seem to have worsened severely over the last 3 weeks. He denies any vomiting, or reflux. He does note significant nasal congestion in the last several months which he attributes to potential allergies although he has not had seasonal allergies previously. He reports no environmental exposures other than perhaps mowing the yard. He does not currently smoke. reports he does not significantly snore. He does sleep poorly, only 2 to 4 hours at a time but this has been his pattern all of his life. In the emergency department Levaquin was initiated, a nebulized breathing treatment was given, and 125 mg of Solu-Medrol. Review of Systems General: Reports: 10 or more systems reviewed and unremarkable except in HPI and below Const: Denies: fever(s) or chills Eyes: Denies: change in vision ENMT: Denies: throat pain Card: Denies: chest pain or palpitations Resp: Reports: dyspnea and non-productive cough GI: Denies: abdominal pain, nausea or vomiting : Denies: flank pain Musc: Denies: neck pain Skin/Breast: Denies: rash Neuro: Denies: headache(s) Psych: Denies: anxiety or depression Endo: Denies: polyuria [place]/Lymph: Denies: easy bruising All/Imm: Denies: urticaria Medications/Allergies Home Medications Medication Instructions Recorded Confirmed Last Taken Type Humalog KwikPen Insulin 14 - 16 unit SUBCUT TID 10/11/20 10/11/20 10/11/20 History Men's 50 Plus Multivitamin 1 tab PO DAILY@69910/11/20 10/11/20 10/11/20 History ProAir HFA 2 puff INHALATION Q4H PRN 10/11/20 10/11/20 10/11/20 History Ruthy Mars U-300 Insulin 36 unit SUBCUT DAILY@69910/11/20 10/11/2011/24 History Trelegy Ellipta 1 inh INHALATION DAILY@69910/11/20 10/11/20 10/11/20 History aspirin 81 mg PO DAILY@69910/11/20 10/11/20 10/11/20 History atorvastatin 10 mg PO DAILY@199910/11/20 10/11/20 10/10/20 History coQ10 (ubiquinol) 200 mg PO DAILY@199910/11/20 10/11/20 10/10/20 History prednisone See Rx Instructions .ROUTE 10/12/20 Unknown Rx .COMPLEX #21 ea Allergies Allergy/AdvReac Type Severity Reaction Status Date / Time No Known Allergies Allergy Verified 10/27/20 05:27 PFSH Acute PFSH: Medical History (Updated 10/27/20 @ 09:04 by Lars Hawkins MD) COPD (chronic obstructive pulmonary disease) Diabetes mellitus, type II Hyperlipidemia Patient reports he was put on statin prophylactically secondary to diabetes Surgical History No history of previous surgery (10/11/20) Family History Father CAD (coronary artery disease) 60s quadruple bypass Myelodysplasia (myelodysplastic syndrome) Mother Pacemaker Grandmother Diabetes Denies family history of Lung disease Social History Smoking and tobacco status: former smoker Alcohol intake: current Alcohol intake frequency: few times a week Alcohol type: beer Household members: spouse Marital status: Supplemental PFSH Information: Specifically denies any family history of premature lung disease. Vitals/I&O/Wt Last Vital Signs Temp 98.3 F 10/27/20 05:23 Pulse 122 H 10/27/20 07:07 Resp 26 H 10/27/20 07:07 BP 156/76 10/27/20 06:39 Pulse Ox 95 10/27/20 07:07 Weight last 48 hrs Weight 79.379 kg Physical Exam Narrative: EXAM NARRATIVE: General exam is a white male, with mild respiratory distress HEENT: Pupils equally round. Oropharynx clear. Neck is supple no lymphadenopathy or thyromegaly Cardiovascular slight tachycardia, regular, no murmur. Hyperdynamic. Lungs diminished breath sounds bilaterally and occasional expiratory wheeze Abdomen is soft, positive bowel sounds. No obvious organomegaly is deferred Extremities no cyanosis clubbing or edema, cap refill brisk Skin no rash Data : 10/27/20 05:30 10/27/20 05:30 Other data: Chest x-ray questionable right lower lobe infiltrate CTA demonstrated no pulmonary embolism, moderate to severe emphysema without pneumonia, numerous enlarged lymph nodes within the mediastinum and hilar region with recommendations to repeat this scan in 6 to 8 weeks. Recent echocardiogram on October 12 demonstrated normal systolic function with an EF of 70%, normal RV function and size and no significant valvular abnormalities. Previous EKG demonstrates a sinus rhythm, normal axis, no acute changes LFTs are normal, calcium 8.4, albumin 4.1 Recent rapid Covid - October 12 A&P Assessment and plan (1) Acute respiratory failure with hypoxia: Oxygen as needed See treatment under COPD exacerbation. Status: Acute (2) COPD exacerbation: Prednisone 40 mg p.o. daily. Continue Levaquin 750 mg by mouth once daily for concern of acute bronchitis Albuterol and Atrovent nebulized every 4 hours Pulmicort nebulized twice daily Addition of Nicolle for concern of seasonal allergies Polycythemia on CBC may indicate chronic hypoxia with his COPD. He is not a CO2 retainer as noted on his blood gas from October 12. He has had 2 hospitalizations, and at least 4 different interactions with physicians regarding COPD in the last 1 month. Will consult pulmonary for their opinion. Note that CT demonstrates numerous group of enlarged lymph nodes, which will need follow-up and/or further exploration. Bronchial wall thickening is noted in the right lower lobe pulmonary artery region as well. 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 Time Spent in Patient Care: Greater than 35 minutes Coding Level of Care Code Acute Human Relations Manager for [facility] Diagnoses Acute respiratory failure with hypoxia J96.01 COPD exacerbation J44.1 Diabetes mellitus, type II E11.65; Z79.4 Diabetes mellitus jail insulin use: with jail use Diabetes mellitus complication status: with hyperglycemia Hyperlipidemia E78.5 Hyperlipidemia type: unspecified
[2020-10-27] MEDS: insulin glargine 100 units/1 mL 30 UNIT SUBCUT (09:14)
[2020-10-27 09:36] LABS: Thyroid Stimulating Hormone 1.62 uIU/mL (0.27-4.20)
[2020-10-27] MEDS: fexofenadine 60 mg Tablet 180 MG PO (10:17)
[2020-10-27] MEDS: enoxaparin 40 mg/0.4 mL Syringe SUBCUT (10:18)
[2020-10-27] MEDS: predniSONE 20 mg Tablet 40 MG PO (10:18)
[2020-10-27 10:22] LABS: Glucose Point of Care 461 mg/dL (70-110)
[2020-10-27 11:46] LABS: Glucose Point of Care 385 mg/dL (70-110)
--- NOTE | 2020-10-27 13:58 | PM.CONSULT ---
Providers/Reason For Consult Consulting Physician/Specialty*: Ankush Wei MD/Pulmonary Critical Care Reason for Consult*: COPD exacerbation Requesting Physician: Lars Hawkins MD Attending Physician: Lars Hawkins MD History of Present Illness History of Present Illness Kenn Casanova is a 64 year old male with PMH of COPD, DM, Hyperlipidemia, presented to ED yesterday with increasing shortness of breath. He was recently hospitalized for COPD exacebation on october 11 and discharged next day. treated with steroids, nebulizations and discharged with steroid taper. Just prior to that admission patient received 10-day course of doxycycline. Patient felt better until yesterday and again his shortness of breath was getting worse especially with exertion associated with wheezing. No chest discomfort. He did home nebulization twice but it did not help and hence came to ED. Reported having COPD for last 15 years but did not require oxygen until last hospital stay. Also reported having significant nasal congestion last few months likely secondary to potential allergies. Reported smoking 2-3 packs per day starting age 14 and quit at age 49. 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 He was again admitted for COPD exacerbation and started on scheduled nebulization and's, steroids and Levaquin. Chest x-ray questionable right lower lobe infiltrate. CTA no evidence of PE, moderate to severe emphysema without pneumonia. Numerous enlarged lymph nodes within the mediastinum hilar region. Bronchial wall thickening is noted in the right lower lobe pulmonary artery region as well. Recent echo on October 12 demonstrated normal systolic function with EF 70% and normal RV function and size with no significant valvular abnormalities. Pulmonary consult requested for recurent COPD exacerbations Review of Systems General: Reports: 10 or more systems reviewed and unremarkable except in HPI and below Meds/Allergies Home Medications and Allergies Home Medications Medication Instructions Recorded Confirmed Last Taken Type Men's 50 Plus Multivitamin 1 tab PO DAILY@69910/11/20 10/27/20 10/11/20 History Touclaudia SoloStar U-300 Insulin 36 unit SUBCUT DAILY@69910/11/20 10/27/20 10/11/20 History Trelegy Ellipta 1 inh INHALATION DAILY@69910/11/20 10/27/20 10/11/20 History albuterol sulfate [ProAir HFA] 2 puff INHALATION Q4H PRN 10/11/20 10/27/20 10/11/20 History aspirin 81 mg PO DAILY@69910/11/20 10/27/20 10/11/20 History atorvastatin 10 mg PO DAILY@199910/11/20 10/27/20 10/10/20 History coQ10 (ubiquinol) 200 mg PO DAILY@199910/11/20 10/27/20 10/10/20 History insulin lispro [Humalog KwikPen 14 - 16 unit SUBCUT TID 10/11/20 10/27/20 10/11/20 History Insulin] ipratropium-albuterol 3 ml INHALATION Q6H PRN 10/27/20 10/27/20 Unknown History Allergies Allergy/AdvReac Type Severity Reaction Status Date / Time No Known Allergies Allergy Verified 10/27/20 05:27 Current Medications Current Medications Generic Name Dose Route Start Last Admin Trade Name Freq PRN Reason Stop Dose Admin Enoxaparin Sodium 40 mg 10/27/20 11:00 10/27/20 10:18 Enoxaparin 40 Mg/0.4 Ml Syringe SUBCUT 40 mg Q24H JOSE Administration Fexofenadine HCl 180 mg 10/27/20 11:00 10/27/20 10:17 Fexofenadine 60 Mg Tablet PO 180 mg DAILY JOSE Administration Insulin Aspart 0 unit 10/27/20 12:00 10/27/20 10:24 Insulin Aspart 100 Unit/1 Ml SUBCUT 18 unit WM&BEDTIME JOSE Administration Protocol Prednisone 40 mg 10/27/20 11:00 10/27/20 10:18 Prednisone 20 Mg Tablet PO 40 mg DAILY JOSE Administration PFSH Acute PFSH: Medical History COPD (chronic obstructive pulmonary disease) Diabetes mellitus, type II Hyperlipidemia Patient reports he was put on statin prophylactically secondary to diabetes Surgical History No history of previous surgery (10/11/20) Family History Father CAD (coronary artery disease) 60s quadruple bypass Myelodysplasia (myelodysplastic syndrome) Mother Pacemaker Grandmother Diabetes Denies family history of Lung disease Social History Smoking and tobacco status: former smoker Alcohol intake: current Alcohol intake frequency: few times a week Alcohol type: beer Household members: spouse Marital status: Vitals/I&O/Wt Last Vital Signs Temp 98.3 F 10/27/20 09:32 Pulse 119 H 10/27/20 10:49 Resp 18 10/27/20 09:32 BP 133/69 10/27/20 09:32 Pulse Ox 96 10/27/20 10:49 10/26/20 10/27/20 10/27/20 22:59 06:59 14:59 Output Total 600 / 600 Balance -600 / -600 Weight last 48 hrs Weight 175 lb Physical Exam Narrative: EXAM NARRATIVE: General: alert, NAD HEENT: conj clear, EOMI, PERRL, mmm, Neck: supple, no meningismus Heme: no cervical LAP Pulmonary: CTAB, no wheezing, rhonchi, crackles Cardiovascular: rrr, nl s1s2, no mrg Abdomen: soft, nt, nd, no r/g, bs+ Extremities: pulses +, no edema, no c/c : no CVA tenderness Skin: intact, no rash MSK: no back or neck pain Neurologic: grossly intact Data Labs: Other Labs: Laboratory Results WBC 10.1 10^3/uL (4.0 -10.0) H 10/27/20 05:30 RBC 5.38 10^6/uL (4.1 -5.3) H 10/27/20 05:30 Hgb 16.7 g/dL (11.7-1 6.6) H 10/27/20 05:30 Hct 50.5 % (42.0-52.0 ) 10/27/20 05:30 MCV 93.9 fL (80-94) 10/27/20 05:30 MCH 31.0 pg (28.0-34. 0) 10/27/20 05:30 MCHC 33.1 g/dL (30.0-3 6.0) 10/27/20 05:30 RDW 12.9 % (12.1-15.1 ) 10/27/20 05:30 Plt Count 257 10^3/cmm (130 -400) 10/27/20 05:30 MPV 10.2 fL (7.4-10.4 ) 10/27/20 05:30 Neut % (Auto) 78.1 % 10/27/20 05:30 Lymph % (Auto) 10.1 % 10/27/20 05:30 [place] % (Auto) 5.2 % 10/27/20 05:30 Eos % (Auto) 5.2 % 10/27/20 05:30 Baso % (Auto) 0.9 % 10/27/20 05:30 Neut # (Auto) 7.89 10^3/uL (1.8 -7.7) H 10/27/20 05:30 Lymph # (Auto) 1.0 10^3/uL (0.8- 4.8) 10/27/20 05:30 [place] # (Auto) 0.5 10^3/uL (0.2- 0.9) 10/27/20 05:30 Eos # (Auto) 0.5 10^3/uL (0.0- 0.8) 10/27/20 05:30 Baso # (Auto) 0.1 10^3/uL (0.0- 0.1) 10/27/20 05:30 Nucleated RBC % (a uto) 0 % 10/27/20 05:30 Nucleated RBCs # 0.0 /100WBC 10/27/20 05:30 PT 13.60 SECONDS (12 .1-14.9) 10/27/20 05:49 INR 1.01 (0.8-1.2) 10/27/20 05:49 Sodium 136 mmol/L (136-1 45) 10/27/20 05:30 Potassium 4.3 mmol/L (3.5-5 .1) 10/27/20 05:30 Chloride 100 mmol/L (98-10 7) 10/27/20 05:30 Carbon Dioxide 26 mmol/L (22-29) 10/27/20 05:30 Anion Gap 14.3 (5-19) 10/27/20 05:30 BUN 10 mg/dL (8-23) 10/27/20 05:30 Creatinine 0.7 mg/dL (0.7-1. 2) 10/27/20 05:30 GFR Calculation 113.2 mL/min (90- 130) 10/27/20 05:30 Glucose 244 mg/dL (65-115 ) H 10/27/20 05:30 POC Glucose 385 mg/dL (70-110 ) H 10/27/20 11:27 Calculated Osmolal ity 289 mOsm/kg (285- 295) 10/27/20 05:30 Calcium 8.4 mg/dL (8.5-10 .5) L 10/27/20 05:30 Total Bilirubin 0.4 mg/dL (0.15-1 .2) 10/27/20 05:30 AST 17 U/L (0-40) 10/27/20 05:30 ALT 30 U/L (0-41) 10/27/20 05:30 Alkaline Phosphata se 81 IU/L (40-130) 10/27/20 05:30 Total Protein 6.9 g/dL (6.6-8.7 ) 10/27/20 05:30 Albumin 4.1 g/dL (3.5-5.2 ) 10/27/20 05:30 Globulin 2.8 g/dL (1.3-4.6 ) 10/27/20 05:30 TSH 1.62 uIU/mL (0.27 -4.20) 10/27/20 05:30 Impressions Chest X-Ray 10/27/20 05:31 IMPRESSION: Increasing right lateral lung base airspace opacity which may represent atelectasis or other infiltrates. Chest CTA 10/27/20 07:28 IMPRESSION: 1. No pulmonary embolism. 2. Moderate to severe emphysema. No pneumonia. 3. Numerous groups of enlarged lymph nodes within the mediastinum and hilar regions. May be reactive or neoplastic adenopathy. No pulmonary mass identified. Recommend at least chest CT follow-up in 6-8 weeks to ensure no progression of these lymph node groups. 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 # uncontrolled sugars in pt with diabetes and on steroids - CUrrently on 2L nasal cannula - Currently on duoneb q 6 hr jose, pulmicort 0.5 mg bid, levaquin 750 mg daily and po prednisone 40 mg daily - reported significant improvement in his dyspnea and wheezing - Ct chest: moderate to severe emphysema - on trelegy as out patient ; Needs tapering dose of PO steroids and Po Levaquin x 5 days. - recommended duoneb nebulization at home every 6 hr prn for shortness of breath - needs PFTs/6mwt as out patient and might benefit from Pulmonary rehab; if FEV1 is < 35% - he needs scheduled nebulizations with LABA, ICS, LAMA - recommended to stay uptodate with flu and pneumonia vaccine. - Repeat CT in 6-8 weeks to look for resolution of lymphadenopathy - if not resolved need EBUS guided [facility]NA[facility] biospy -closely monitor sugars especially while on steroids; currently on Lantus 36 units at bedtime and scale coverage Medical condition, labs, investigations, medications, counseling regarding medication compliance, side effects, importance of follow-up appointments, and plan of care-everything explained in detail to the patient. Patient verbalized understanding and agreed with the plan of care. Recommendations conveyed to hospitalist taking care of the patient Time spent speaking with the patient for this visit was about 35 minutes Reviewed old medical records and summarized as above Reviewed medications in detail and reconciled as necessary Reviewed the labs in detail with the patient Consult Attestations Medical Necessity Statement: Improving clinically for COPD exacerbations with Steroids, Levaquin and nebs; need close monitoring of sugars can be discharged to pulmonary clinic in 1-2 days Time Spent in Patient Care: (>than 50% of time spent in counselling and/or direct pt care on unit). Critical Care Time: Critical Care Time (min): 35 Coding Level of Care Code New Pt Acute Demo Specialist for [facility] Patient Type New History Comprehensive Exam Comprehensive Medical Decision Making Moderate Complexity Diagnoses Acute respiratory failure with hypoxia J96.01 Hypoxemia R09.02 COPD exacerbation J44.1 Diabetes mellitus, type II E11.65; Z79.4 Diabetes mellitus mcfp insulin use: with mcfp use Diabetes mellitus complication status: with hyperglycemia Time Spent (min) 35
[2020-10-27 16:40] LABS: Glucose Point of Care 362 mg/dL (70-110)
[2020-10-27 20:46] LABS: Glucose Point of Care 264 mg/dL (70-110)
[2020-10-27] MEDS: atorvastatin 40 mg Tablet 10 MG PO (22:35)
[2020-10-28] VITALS (13 sets, daily range): BP systolic 134–144; BP diastolic 64–75; PULSE 72–92; RESP 18–22; TEMP 36.4–36.8; O2SAT 84–96
[2020-10-28] MEDS: ipratropium-albuterol 3 mL Neb INHALATION ×3 (03:00→11:08)
[2020-10-28] MEDS: aspirin 81 mg EC Tablet PO (05:07)
[2020-10-28] MEDS: levoFLOXacin 750 mg Tablet PO (05:07)
[2020-10-28 05:54] LABS: Basophils % 0.2 %; Eosinophils # 0.1 10^3/uL (0.0-0.8); Eosinophils % 0.3 %; Hematocrit 46.6 % (42.0-52.0); Hemoglobin 15.2 g/dL (11.7-16.6); Lymphocytes # 1.2 10^3/uL (0.8-4.8); Lymphocytes % 7.3 %; Mean Corpuscular HGB Conc 32.6 g/dL (30.0-36.0); Mean Corpuscular Hemoglobin 31.1 pg (28.0-34.0); Mean Corpuscular Volume 95.5 fL (80-94); Mean Platelet Volume 10.7 fL (7.4-10.4); Monocytes % 5.9 %; Neutrophils # 14.27 10^3/uL (1.8-7.7); Neutrophils % 85.7 %; Nucleated Red Blood Cells % 0 %; Platelet Count 255 10^3/cmm (130-400); Red Blood Count 4.88 10^6/uL (4.1-5.3); Red Cell Distribution Width 13.2 % (12.1-15.1); White Blood Count 16.7 10^3/uL (4.0-10.0)
[2020-10-28 06:13] LABS: Alanine Aminotransferase 24 U/L (0-41); Albumin Level 3.5 g/dL (3.5-5.2); Alkaline Phosphatase 72 IU/L (40-130); Anion Gap 17.8 (5-19); Aspartate Amino Transferase 12 U/L (0-40); Blood Urea Nitrogen 16 mg/dL (8-23); Calcium 8.5 mg/dL (8.5-10.5); Carbon Dioxide 20 mmol/L (22-29); Chloride 98 mmol/L (98-107); Globulin 2.3 g/dL (1.3-4.6); Glomerular Filtration Rate 84.7 mL/min (90-130); Glucose 407 mg/dL (65-115); Osmolality Calculated 290 mOsm/kg (285-295); Potassium 4.8 mmol/L (3.5-5.1); Sodium 131 mmol/L (136-145); Total Bilirubin 0.3 mg/dL (0.15-1.2); Total Protein 5.8 g/dL (6.6-8.7)
[2020-10-28 06:20] LABS: Glucose Point of Care 354 mg/dL (70-110)
[2020-10-28] MEDS: budesonide 0.5 mg/2 mL Neb INHALATION (07:47)
[2020-10-28] MEDS: insulin glargine 100 units/1 mL 36 UNIT SUBCUT (08:12)
[2020-10-28] MEDS: fexofenadine 60 mg Tablet 180 MG PO (08:12)
[2020-10-28] MEDS: predniSONE 20 mg Tablet 40 MG PO (08:12)
--- NOTE | 2020-10-28 09:19 | P.DS_ITS ---
Discharge Providers Date of Admission: 10/27/20 07:31 Date of Discharge: October 28, 2020 Attending Provider at Admission: Lars Hawkins MD Attending Provider at Discharge: Lars Hawkins MD Diagnoses at Discharge Discharge Diagnosis (1) Acute respiratory failure with hypoxia: Status: Acute (2) Hypoxemia: Status: Acute (3) COPD exacerbation: Status: Acute (4) Diabetes mellitus, type II: Status: Chronic Qualifiers: Diabetes mellitus extermination inspector insulin use: with extermination inspector use Diabetes mellitus complication status: with hyperglycemia Qualified Code(s): E11.65 - Type 2 diabetes mellitus with hyperglycemia; Z79.4 - intermediate (current) use of insulin Reason for Visit Reason for Visit: COPD trouble breathing Hospital Course Hospital Course Kenn is a 64-year-old white male who presented to the emergency department with shortness of breath. He was diagnosed with a COPD exacerbation. He was started on Levaquin for bronchitis, prednisone for COPD exacerbation, and given pulmonary toilet. By October 28 he was eager to go home and feeling better. He had also received a pulmonary consultation secondary to 2 recent admissions in the last month and 2 outpatient visits with his primary care provider for the same condition. He will be discharged today in stable condition after home oxygen evaluation. He will follow-up with his primary as well as pulmonary. He will use DuoNeb every 6 hours as needed in addition to his regular inhalers. Nicolle will be added. He will finish 5 days of Levaquin, and a prednisone taper. Physical Exam Narrative: EXAM NARRATIVE: General exam is no apparent distress Cardiovascular regular rate and rhythm without murmur Lungs diminished breath sounds bilaterally but clear Abdomen is soft with positive bowel sounds Extremities no cyanosis clubbing or edema Discharge Data Data Completed and Pending: Completed Studies During Hospitalization Category Date Time Status CT angio chest PE protcl [id number] Stat Cat Scan 10/27/20 07:28 Completed XR chest 1V ace ble [id number] Urgent Exams 10/27/20 05:31 Completed Labs from last 24 hours 10/28/20 10/28/20 10/28/20 06:16 05:27 05:27 WBC 16.7 H RBC 4.88 Hgb 15.2 Hct 46.6 MCV 95.5 H MCH 31.1 MCHC 32.6 RDW 13.2 Plt Count 255 MPV 10.7 H Neut % (Auto) 85.7 Lymph % (Auto) 7.3 [place] % (Auto) 5.9 Eos % (Auto) 0.3 Baso % (Auto) 0.2 Neut # (Auto) 14.27 H Lymph # (Auto) 1.2 [place] # (Auto) 1.0 H Eos # (Auto) 0.1 Baso # (Auto) 0.0 Nucleated RBC % (a uto) 0 Nucleated RBCs # 0.0 Sodium 131 L Potassium 4.8 Chloride 98 Carbon Dioxide 20 L Anion Gap 17.8 BUN 16 Creatinine 0.9 GFR Calculation 84.7 L Glucose 407 H POC Glucose 354 H Calculated Osmolal ity 290 Calcium 8.5 Total Bilirubin 0.3 AST 12 ALT 24 Alkaline Phosphata se 72 Total Protein 5.8 L Albumin 3.5 Globulin 2.3 TSH 10/27/20 10/27/20 10/27/20 20:39 16:37 11:27 WBC RBC Hgb Hct MCV MCH MCHC RDW Plt Count MPV Neut % (Auto) Lymph % (Auto) [place] % (Auto) Eos % (Auto) Baso % (Auto) Neut # (Auto) Lymph # (Auto) [place] # (Auto) Eos # (Auto) Baso # (Auto) Nucleated RBC % (a uto) Nucleated RBCs # Sodium Potassium Chloride Carbon Dioxide Anion Gap BUN Creatinine GFR Calculation Glucose POC Glucose 264 H 362 H 385 H Calculated Osmolal ity Calcium Total Bilirubin AST ALT Alkaline Phosphata se Total Protein Albumin Globulin TSH 10/27/20 10/27/20 10:18 05:30 WBC RBC Hgb Hct MCV MCH MCHC RDW Plt Count MPV Neut % (Auto) Lymph % (Auto) [place] % (Auto) Eos % (Auto) Baso % (Auto) Neut # (Auto) Lymph # (Auto) [place] # (Auto) Eos # (Auto) Baso # (Auto) Nucleated RBC % (a uto) Nucleated RBCs # Sodium Potassium Chloride Carbon Dioxide Anion Gap BUN Creatinine GFR Calculation Glucose POC Glucose 461 H Calculated Osmolal ity Calcium Total Bilirubin AST ALT Alkaline Phosphata se Total Protein Albumin Globulin TSH 1.62 Vitals: Last Vital Signs Temp 97.6 F 10/28/20 07:37 Pulse 86 10/28/20 08:07 Resp 18 10/28/20 07:55 BP 144/75 10/28/20 07:37 Pulse Ox 96 10/28/20 07:55 Discharge Plan Discharge Patient Disposition: Home Condition: Stable Prescriptions: New levofloxacin 750 mg Tablet 750 mg PO DAILY@0600 Qty: 5 RF: 0 prednisone 10 mg tablet See Rx Instructions .ROUTE .COMPLEX Qty: 33 RF: 0 fexofenadine 60 mg Tablet 180 mg PO DAILY Qty: 30 RF: 0 Continued atorvastatin 10 mg tablet 10 mg PO DAILY@1999 RF: 0 aspirin 81 mg Tablet,Delayed Release (Dr/Ec) 81 mg PO DAILY@0700 RF: 0 albuterol sulfate [ProAir HFA] 90 mcg/actuation HFA aerosol inhaler 2 puff INHALATION Q4H PRN (Reason: Wheezing) RF: 0 insulin lispro [Humalog KwikPen Insulin] 100 unit/mL insulin pen 14 - 16 unit SUBCUT TID RF: 0 coQ10 (ubiquinol) 200 mg Capsule 200 mg PO DAILY@1999 RF: 0 Men's 50 Plus Multivitamin 400-20-370 mcg Tablet 1 tab PO DAILY@0700 RF: 0 Toujeo SoloStar U-300 Insulin 300 unit/mL (1.5 mL) insulin pen 36 unit SUBCUT DAILY@0700 RF: 0 Trelegy Ellipta 100-62.5-25 mcg blister with device 1 inh INHALATION DAILY@0700 RF: 0 ipratropium-albuterol 0.5 mg-3 mg(2.5 mg base)/3 mL solution for nebulization 3 ml INHALATION Q6H PRN (Reason: Shortness Of Breath) Qty: 200 RF: 0 Discharge Orders: Discharge Order (Routine); Ordered 10/28/20 Ordered By: Lars Hawkins Referrals: Ankush Wei MD [Physician] - 1 month (Make sure his insurance is accepted by clinic) Anu Tirado MD [Referring] - 4-7 days Discharge Diet: Diabetic Discharge Activity: Increase activity as tolerated Patient Instructions: Opioid Safety Activity Restrictions/Additional Instructions: Avoid potential airway triggers. Home oxygen evaluation prior to discharge. Discharge Attestations Time Spent in Discharge Care*: greater than 30 min Quality Metrics Clinical Quality Measures During this hospital stay, did patient experience: None Coding Level of Care Code Acute g [facility] note Diagnoses Acute respiratory failure with hypoxia J96.01 Hypoxemia R09.02 COPD exacerbation J44.1 Diabetes mellitus, type II E11.65; Z79.4 Diabetes mellitus detention insulin use: with extermination inspector use Diabetes mellitus complication status: with hyperglycemia
--- NOTE | 2020-10-28 10:58 | PC.CHAP ---
Pastoral Care Encounter/Spiritual Assessment Type of Contact [] Declined cement sprayer helper visit [] Patient/Family/Request visit [] Outpatient visit [] Follow-up visit [] Physician referral [] Code/Alert [x] Routine visit [] Staff referral [] Actively dying [] Patient sleeping [] Family support [] [] Out of room [] Palliative care [] [x] Receiving care in room [] Pre-surgical visit [] Trauma [] Long length of stay [] ICU visit [] Other: Relational/Emotional Strength [x] Patient feels connected with others/family/visitors/staff [] Distress [] Loneliness/isolation [] Abandonment Spirituality of Patient [x] Person of Brynn [] Attends Hindu of their Brynn [x] Believes in Prayer [] Reads Bible or Islam materials [] There are Spiritual issues to be addressed Oil Expert Interventions [x] Prayer [x] Active listening [x] Non-anxious presence [x] Spiritual/emotional support [] Crisis/trauma care [x] Spiritual counseling [] Bereavement support [] Provided bereavement packet [] Provided Bible/devotional materials [] Provided toy/stuffed animal, coloring book to patient or family member [] Provided Communion [] Anointing/[place] [] Salvation [x] Completed spiritual assessment [] Other: Impact on Illness or Injury [] Angry [] Fearful [] Anxious [] Often cries [] Exhaustion [] Unable to work [] Unable to attend yazidism [] Unable to walk/stand [] Unable to read [] Unable to drive [] Unable to eat/drink [] Unable to sleep [] Unable to be with family [] Patient intubated [] Other: Summary trouble breathing changing meds for now feels good maybe [place], wants to go home quite smoking years ago has a good attitude +1 Time spent with patient 10 mins
== END 2020-10-28 13:19 | disposition home or self-care (01) ==
LOC: ER 07:42 → MEDSURG 09:10
PROVIDERS: Emergency Medicine; Admitting Provider Internal Medicine; Emergency Provider Family Medicine; Visit Provider Internal Medicine
DX: J96.01 Acute respiratory failure with hypoxia (principal); J44.1 Chronic obstructive pulmonary disease with (acute) exacerbation; E11.65 Type 2 diabetes mellitus with hyperglycemia; Z79.4 Long term (current) use of insulin; E78.5 Hyperlipidemia, unspecified; Z87.891 Personal history of nicotine dependence; Z82.49 Family history of ischemic heart disease and other diseases of the circulatory system; Z83.3 Family history of diabetes mellitus
CPT/HCPCS: 36415; 36416; 71045; 71275; 80053; 82962; 84443; 85025; 85610; 93005; 94640; 96365; 96372; 96375; 99285; G0378; J1650; J1815 ×2; J1956; J2930; J7512; J7611; J7626; Q9967

== ENCOUNTER 2020-12-17 13:12 | Outpatient (CLI) | payer MEDICARE, SELFPAY ==
--- NOTE | 2020-12-17 13:30 | CT_ITS ---
WS: [id number] CT scan of the chest without IV contrast, additional two-dimensional coronal and sagittal reconstruct ion was performed. 12/17/2020 Clinical Data: resolution of mediastinal and hilar lymph nodes Comparison: None. DLP: 866.[address] scans at [facility] use at least one of these dose optimization techniques: automat ed exposure control; mA and/or kV adjustment per patient size (includes targeted exams where dose is matched to clinical indication); or iterative reconstruction. Findings: No nodules, masses or effusions are seen. The heart size is normal with no pericardial effusion. No p neumonia or pneumothorax is seen. The pulmonary arterial system and thoracic aorta demonstrate no abn ormalities or dilatations. The mediastinal adenopathy appears to be the same as the prior study. Th ere is no increase in size and not an increase in number. They are still apparent in the anterior med iastinum, middle mediastinum, both usman and the subcarinal area. No axillary adenopathy is seen. The upper abdomen shows no change. CT/CT chest wo con [id number] Impression: 1. No change in mediastinal and hilar lymph nodes. 2. Recommend chest CT follow-up in 6 months.
== END 2020-12-17 13:13 | disposition home or self-care (01) ==
PROVIDERS: PCP Family Medicine; Visit Provider Internal Medicine Pulmonary Disease
DX: R59.0 Localized enlarged lymph nodes (principal)
CPT/HCPCS: 71250

== ENCOUNTER 2021-03-14 22:27 | Emergency (ER) | payer MEDICARE, SELFPAY ==
--- NOTE | 2021-03-14 22:29 | XRR_ITS ---
PROCEDURE INFORMATION: Exam: XR Chest Exam date and time: 03/14/2021 10:29 PM Age: 65 years old Clinical indication: Dyspnea; Additional info: SOB TECHNIQUE: Imaging protocol: XR of the chest. Views: 1 view. COMPARISON: CT chest con [id number] 12/17/2020 1:32 PM FINDINGS: Lungs: Stable COPD . Possible 1.5 cm nodule of the left lower lung field. This correlates with inferior segment lingular pleural based atelectasis and/or scar noted on recent CT chest. Pleural spaces: See Lungs finding. Heart/Mediastinum: Unremarkable. No cardiomegaly. Bones/joints: Unremarkable. XR/XR chest 1V portable [id number] IMPRESSION: 1. Stable COPD . 2. Possible 1.5 cm nodule of the left lower lung field. This correlates with inferior segment lingular pleural based atelectasis and/or scar noted on recent CT chest. Radiation Dose CTDIVOL = (mGy): DLP = (mGy-cm)
[2021-03-14 22:46] VITALS: BP 154/76; PULSE 96; RESP 24; TEMP 37.1; O2SAT 92; BMI 29.0
--- NOTE | 2021-03-14 23:00 | W.ED.SOB ---
HPI - SOB/Dyspnea General: Chief Complaint: Shortness of Breath/Dyspnea Stated Complaint: COPD-SOB Time Seen by Provider: 03/14/21 23:00 History of Present Illness: HPI Narrative: 65-year-old male patient comes in today with increasing shortness of breath over the last 2 days. Patient has a history of COPD, and mediastinal lymphadenopathy. Patient also has a history of diabetes mellitus and hyperlipidemia. Patient reports increased use of of oxygen today. Patient takes Trulicity daily for his COPD and using the albuterol inhaler as needed. MD elicited complaint: shortness of breath Review of Systems General: Reports: 10 or more systems reviewed and unremarkable except in HPI and below Resp: Reports: dyspnea PFSH ED PFSH: Medical History COPD (chronic obstructive pulmonary disease) Diabetes mellitus, type II Hyperlipidemia Patient reports he was put on statin prophylactically secondary to diabetes Surgical History No history of previous surgery (10/11/20) Family History Father CAD (coronary artery disease) 60s quadruple bypass Myelodysplasia (myelodysplastic syndrome) Mother Pacemaker Grandmother Diabetes Denies family history of Lung disease Social History Smoking and tobacco status: former smoker Quit status (tobacco): has quit using tobacco Year quit tobacco: 2005- 2-3ppd x 30 years Second hand smoke exposure: Yes Alcohol intake: current Alcohol intake frequency: few times a week Alcohol type: beer Household members: spouse Marital status: Physical Exam Const: COMMON NORMALS: no acute distress and patient oriented x3 GENERAL APPEARANCE: cooperative HENMT: COMMON NORMALS: normocephalic, TM's normal bilaterally and Normal external nose present HEAD & SCALP: normal to inspection and normocephalic NOSE: Normal external nose present TYMPANIC MEMBRANE: TM's normal bilaterally MOUTH: Normal oral and palatal mucosa present THROAT: posterior oropharynx normal Eye: GENERAL EYE: appearance normal, both eyes and all related structures Neck/C-Spine: COMMON NORMALS: full ROM Lymph: LYMPHATIC: no lymphadenopathy noted Chest: COMMONS NORMALS: normal inspection of the chest Resp: COMMON NORMALS: normal respiratory effort EFFORT & INSPECTION: Yes able to speak in complete sentences and Yes tripod positioning AUSCULTATION: wheezes and diminished lung sounds Cardio: COMMON NORMALS: regular rate and regular rhythm RATE: regular rate RHYTHM: regular rhythm GI: COMMON NORMALS: non-tender : COMMON NORMALS: Yes no CVA tenderness BLADDER/KIDNEY EXAM: Yes no CVA tenderness Back/Pelvis: COMMON NORMALS: no CVA tenderness and thoracic and lumbar spine normal to inspection Extremity: COMMON NORMALS: normal to inspection Neuro: COMMON NORMALS: patient oriented x3 and moves all extremities Psych: COMMON NORMALS: mental status grossly normal and cooperative Skin: COMMON NORMALS: no rashes or lesions noted GENERAL SKIN EXAM: no rashes or lesions noted Course Vital Signs: Vital signs: Vital Signs Temperature 98.7 F 03/14/21 22:46 Pulse Rate 87 03/15/21 00:14 Respiratory Rate 21 H 03/15/21 00:14 Blood Pressure 128/80 03/15/21 00:14 Pulse Oximetry 94 03/15/21 00:14 MDM - SOB/Dyspnea MDM Narrative: Medical decision making narrative: Patient came in today for complaints of increased shortness of breath starting today. Patient does have a history of COPD. On exam patient had decreased air movement throughout lung [place]. Skin is warm and dry. Patient is having some increased effort with respirations. Vital signs are normal. Differential diagnosis includes pneumonia, exacerbation of COPD, CHF, ACS. Chest x-ray noted no acute process. CBC and CMP were unremarkable. Patient was treated with methylprednisone 125 mg IV, patient was given a DuoNeb treatment with improvement in overall symptoms. Patient was able to lay back and sleep for short time. Reviewed exam with patient with recommendations for treatment with Levaquin and prednisone and increasing nebulizer treatments and albuterol. Patient reported understanding and agreed to plan. I offered to admit patient but he did want want admission at this time and felt he could manage it at home and would return for worsening symptoms. Lab Data: Labs: Lab Results 03/14/21 03/14/21 03/14/21 23:18 23:18 23:18 WBC Cancelled Corrected WBC Cancelled RBC Cancelled Hgb Cancelled Hct Cancelled MCV Cancelled MCH Cancelled MCHC Cancelled RDW Cancelled Plt Count Cancelled MPV Cancelled Gran % Cancelled Neut % (Auto) Cancelled Lymph % (Auto) Cancelled [place] % (Auto) Cancelled Eos % (Auto) Cancelled Baso % (Auto) Cancelled Neut # (Auto) Cancelled Lymph # (Auto) Cancelled [place] # (Auto) Cancelled Eos # (Auto) Cancelled Baso # (Auto) Cancelled Absolute Gran (aut o) Cancelled Nucleated RBC % (a uto) Cancelled Nucleated RBCs # Cancelled Sodium 133 mmol/L L mmol /L (136-145) Potassium 4.5 mmol/L mmol/L (3.5-5.1) Chloride 98 mmol/L mmol/L (98-107) Carbon Dioxide 23 mmol/L mmol/L (22-29) Anion Gap 16.5 (5-19) BUN 11 mg/dL mg/dL (8-23) Creatinine 0.5 mg/dL L mg/dL (0.7-1.2) GFR Calculation 166.4 mL/min H mL /min (90-130) Glucose 237 mg/dL H mg/dL (65-115) Calculated Osmolal ity 283 mOsm/kg L mOs m/kg (285-295) Calcium 9.2 mg/dL mg/dL (8.5-10.5) Total Bilirubin 0.3 mg/dL mg/dL (0.15-1.2) AST 22 U/L U/L (0-40) ALT 26 U/L U/L (0-41) Alkaline Phosphata se 73 IU/L IU/L (40-130) Troponin T Gen 5 n g/L 7 ng/L ng/L (0-15) NT-Pro-B Natriuret Pep 30 pg/mL pg/mL (0-125) Total Protein 6.9 g/dL g/dL (6.6-8.7) Albumin 4.2 g/dL g/dL (3.5-5.2) Globulin 2.7 g/dL g/dL (1.3-4.6) 03/14/21 23:32 WBC 8.8 10^3/uL 10^3/ uL (4.0-10.0) Corrected WBC RBC 5.37 10^6/uL H 10 ^6/uL (4.1-5.3) Hgb 16.6 g/dL g/dL (11.7-16.6) Hct 48.9 % % (42.0-52.0) MCV 91.1 fl fl (80-94) MCH 30.9 pg pg (28.0-34.0) MCHC 33.9 g/dL g/dL (30.0-36.0) RDW 12.7 % % (12.1-15.1) Plt Count 269 10^3/cmm 10^3 /cmm (130-400) MPV 10.2 fL fL (7.4-10.4) Gran % Neut % (Auto) 74.8 % % Lymph % (Auto) 12.4 % % [place] % (Auto) 6.5 % % Eos % (Auto) 5.1 % % Baso % (Auto) 1.0 % % Neut # (Auto) 6.58 10^3/uL 10^3 /uL (1.8-7.7) Lymph # (Auto) 1.1 10^3/uL 10^3/ uL (0.8-4.8) Banks # (Auto) 0.6 10^3/uL 10^3/ uL (0.2-0.9) Eos # (Auto) 0.5 10^3/uL 10^3/ uL (0.0-0.8) Baso # (Auto) 0.1 10^3/uL 10^3/ uL (0.0-0.1) Absolute Gran (aut o) Nucleated RBC % (a uto) 0 % % Nucleated RBCs # 0.0 /100WBC /100W BC Sodium Potassium Chloride Carbon Dioxide Anion Gap BUN Creatinine GFR Calculation Glucose Calculated Osmolal ity Calcium Total Bilirubin AST ALT Alkaline Phosphata se Troponin T Gen 5 n g/L NT-Pro-B Natriuret Pep Total Protein Albumin Globulin Discharge Plan Discharge Patient Disposition: Home Clinical Impression: Acute exacerbation of chronic obstructive airways disease Condition: Stable Prescriptions: New levofloxacin 500 mg tablet 500 mg PO DAILY 7 Days Qty: 7 RF: 0 prednisone 20 mg tablet 20 mg PO BID 5 Days Qty: 10 RF: 0 Mucinex 1,200 mg tablet extended release 12hr 1,200 mg PO BID Qty: 20 RF: 0 No Action atorvastatin 10 mg tablet 10 mg PO DAILY@2000 RF: 0 aspirin 81 mg Tablet,Delayed Release (Dr/Ec) 81 mg PO DAILY@0700 RF: 0 albuterol sulfate [ProAir HFA] 90 mcg/actuation HFA aerosol inhaler 2 puff INHALATION Q4H PRN (Reason: Wheezing) RF: 0 insulin lispro [Humalog KwikPen Insulin] 100 unit/mL insulin pen 14 - 16 unit SUBCUT TID RF: 0 coQ10 (ubiquinol) 200 mg Capsule 200 mg PO DAILY@2000 RF: 0 Men's 50 Plus Multivitamin 400-20-370 mcg Tablet 1 tab PO DAILY@0700 RF: 0 Toujeo SoloStar U-300 Insulin 300 unit/mL (1.5 mL) insulin pen 36 unit SUBCUT DAILY@0700 RF: 0 Trelegy Ellipta 100-62.5-25 mcg blister with device 1 inh INHALATION DAILY@0700 RF: 0 fexofenadine 60 mg Tablet 180 mg PO DAILY Qty: 30 RF: 0 levofloxacin 750 mg Tablet 750 mg PO DAILY@0600 Qty: 5 RF: 0 ipratropium-albuterol 0.5 mg-3 mg(2.5 mg base)/3 mL solution for nebulization 3 ml INHALATION Q6H PRN (Reason: Shortness Of Breath) Qty: 200 RF: 0 Discharge Orders: Discharge ED (Routine); Ordered 03/15/21 Ordered By: Femi Rowan Referrals: Anu Tirado MD [Primary Care Provider] - Discharge Diet: Usual diet Discharge Activity: Increase activity as tolerated Patient Instructions: COPD (Chronic Obstructive Pulmonary Disease) (ED), Opioid Safety Activity Restrictions/Additional Instructions: Home and rest. Increase nebulizer treatments to 6 times a day. Use albuterol rescue inhaler as needed for breakthrough difficulty breathing. Take Levaquin 500 mg daily for the next 7 days. Use prednisone 20 mg twice a day for the next 5 days. Monitor and manage blood sugar closely as you will expect increase in blood sugar. Follow-up with primary care for further instruction. Make sure to drink plenty of water and fluids. Return to the emergency department for worsening symptoms or new concerns. Coding Level of Care Code ED Speech Pathologist Assistant for Steph Fwd Exam Comprehensive
[2021-03-14 23:37] LABS: Basophils # 0.1 10^3/uL (0.0-0.1); Eosinophils # 0.5 10^3/uL (0.0-0.8); Eosinophils % 5.1 %; Hematocrit 48.9 % (42.0-52.0); Hemoglobin 16.6 g/dL (11.7-16.6); Lymphocytes # 1.1 10^3/uL (0.8-4.8); Lymphocytes % 12.4 %; Mean Corpuscular HGB Conc 33.9 g/dL (30.0-36.0); Mean Corpuscular Hemoglobin 30.9 pg (28.0-34.0); Mean Corpuscular Volume 91.1 fl (80-94); Mean Platelet Volume 10.2 fL (7.4-10.4); Monocytes # 0.6 10^3/uL (0.2-0.9); Monocytes % 6.5 %; Neutrophils # 6.58 10^3/uL (1.8-7.7); Neutrophils % 74.8 %; Nucleated Red Blood Cells % 0 %; Platelet Count 269 10^3/cmm (130-400); Red Blood Count 5.37 10^6/uL (4.1-5.3); Red Cell Distribution Width 12.7 % (12.1-15.1); White Blood Count 8.8 10^3/uL (4.0-10.0)
[2021-03-14 23:42] LABS: Troponin T (5th) Once 7 ng/L (0-15)
[2021-03-14 23:52] LABS: Alanine Aminotransferase 26 U/L (0-41); Albumin Level 4.2 g/dL (3.5-5.2); Alkaline Phosphatase 73 IU/L (40-130); Anion Gap 16.5 (5-19); Aspartate Amino Transferase 22 U/L (0-40); Blood Urea Nitrogen 11 mg/dL (8-23); Calcium 9.2 mg/dL (8.5-10.5); Carbon Dioxide 23 mmol/L (22-29); Globulin 2.7 g/dL (1.3-4.6); Glomerular Filtration Rate 166.4 mL/min (90-130); Glucose 237 mg/dL (65-115); Potassium 4.5 mmol/L (3.5-5.1); Total Bilirubin 0.3 mg/dL (0.15-1.2); Total Protein 6.9 g/dL (6.6-8.7)
[2021-03-14] MEDS: ipratropium-albuterol 3 mL Neb INHALATION (23:53)
[2021-03-15 00:06] VITALS: PULSE 84; PULSE 85; RESP 16; O2SAT 91; O2SAT 95
[2021-03-15 00:14] VITALS: BP 128/80; PULSE 87; RESP 21; O2SAT 94
[2021-03-15 00:16] LABS: NT Pro B Type Natriuretic Pept 30 pg/mL (0-125)
[2021-03-15] MEDS: levoFLOXacin 500 mg Tablet PO (00:30)
[2021-03-15 00:36] LABS: Chloride 98 mmol/L (98-107); Osmolality Calculated 283 mOsm/kg (285-295); Sodium 133 mmol/L (136-145)
[2021-03-15] MEDS: dexamethasone 10 mg/mL INJ 6 MG IVP (00:38)
[2021-03-15 00:44] VITALS: BP 128/80; PULSE 86; RESP 19; O2SAT 93
== END 2021-03-15 00:47 | disposition home or self-care (01) ==
PROVIDERS: Emergency Medicine; Emergency Provider Nurse Practitioner Family; PCP Family Medicine
DX: J44.1 Chronic obstructive pulmonary disease with (acute) exacerbation (principal); Z79.82 Long term (current) use of aspirin; Z79.899 Other long term (current) drug therapy; Z79.4 Long term (current) use of insulin; Z87.891 Personal history of nicotine dependence; E11.8 Type 2 diabetes mellitus with unspecified complications; E78.5 Hyperlipidemia, unspecified
CPT/HCPCS: 36415; 71045; 80053; 83880; 84484; 85025; 94640; 96374; 96375; 99284; J1100; J2930; J7611

== ENCOUNTER → 2021-04-20 09:37 | Outpatient (BNVA) | payer MEDICARE, SELFPAY | PROVIDERS: PCP Family Medicine; Visit Provider Internal Medicine Pulmonary Disease | DX: Z20.822 Contact with and (suspected) exposure to COVID-19 (principal); J44.9 Chronic obstructive pulmonary disease, unspecified | CPT/HCPCS: 87635 ==

== ENCOUNTER 2021-04-26 10:15 | Outpatient (CLI) | payer MEDICARE, SELFPAY ==
--- NOTE | 2021-04-26 11:16 | PFTS_ITS ---
Date of Study:04/26/21 Date of Dictation: MECHANICS: Forced vital capacity (FVC) is normal. Forced expiratory volume in one second (FEV1) is reduced. FEV1/FVC is reduced. FLOW VOLUME LOOP: Reduced flow at all lung volumes with significant scooping. LUNG VOLUMES: Total lung capacity (TLC) is normal. Residual volume (RV) is increased. DIFFUSING CAPACITY FOR CARBON MONOXIDE: Moderately reduced. INTERPRETATION: The prebronchodilator spirometry is consistent with moderate airflow obstruction. No postbronchodilator spirometry was performed. Lung volumes are consistent with air trapping. Gas exchange (DLCO) is moderately reduced. MTDD
== END 2021-04-26 10:16 | disposition home or self-care (01) ==
LOC: RT 10:18
PROVIDERS: PCP Family Medicine; Visit Provider Internal Medicine Pulmonary Disease
DX: J44.9 Chronic obstructive pulmonary disease, unspecified (principal); R59.0 Localized enlarged lymph nodes
CPT/HCPCS: 94010; 94618; 94726; 94729

== ENCOUNTER 2021-06-28 19:27 | Emergency (ER) | payer MEDICARE, SELFPAY ==
--- NOTE | 2021-06-28 19:28 | XRR_ITS ---
PROCEDURE INFORMATION: Exam: XR Chest Exam date and time: 06/28/2021 7:28 PM Age: 65 years old Clinical indication: Shortness of breath; Additional info: SOB TECHNIQUE: Imaging protocol: XR of the chest. Views: 1 view. COMPARISON: CR (CHEST, ) 03/14/2021 11:17 PM FINDINGS: The lungs are clear of infiltrate. There are no pleural effusions or pneumothorax. The heart size and pulmonary vascularity are normal. XR/XR chest 1V portable [id number] IMPRESSION: No active disease.
--- NOTE | 2021-06-28 19:28 | ECG_ITS ---
[facility] Test Date: 2021-06-28 Pat Name: Kenn Casanova Department: Room: Gender: Male Credit Analysis Manager: : 1955 Requested By: Rossana Brown Order Number: [id number] Dennis MD: Lilian Kendrick M.D. Measurements Intervals [place] Rate: 87 P: 74 AL: 149 QRS: 89 QRSD: 92 T: 59 QT: 347 QTc: 418 Interpretive Statements SINUS RHYTHM Compared to ECG 10/27/2020 05:28:51 No significant changes Electronically Signed On 06-29-2021 7:18:58 SALAD COUNTER ATTENDANT by Lilian Kendrick M.D. [email or web address]
[2021-06-28 19:35] VITALS: BP 153/73; PULSE 90; RESP 18; TEMP 36.8; O2SAT 94; BMI 29.0
--- NOTE | 2021-06-28 21:19 | ED_ITS ---
HPI - SOB/Dyspnea General: Chief Complaint: Shortness of Breath/Dyspnea Stated Complaint: SOB Time Seen by Provider: 06/28/21 20:53 History of Present Illness: HPI Narrative: Mr. Casanova is a 65-year-old gentleman with history of COPD and chronic hypoxic respiratory failure presents emergency department due to shortness of breath. He reports symptoms started gradually approximately 3 weeks ago however have continued to worsen since that time. He notes exertional dyspnea that is also worse with lying flat. He does have mild nonproductive cough with that which is perhaps worse than baseline. He has had to turn up his oxygen as well. Symptoms are now moderate to severe in intensity and limit capacity to perform normal activities. Denies other significant change in health. He has been compliant with his medication regimen. No other specific exacerbating or relieving factors identified. Pertinent past history: COPD and diabetes Onset (ago): week(s) Severity: moderate Exacerbating factors: lying flat and exertion Relieving factors: nothing Known history of: COPD Treatment prior to arrival: oxygen Review of Systems General: Reports: 10 or more systems reviewed and unremarkable except in HPI and below PFSH ED PFSH: Medical History COPD (chronic obstructive pulmonary disease) Diabetes mellitus, type II Hyperlipidemia Patient reports he was put on statin prophylactically secondary to diabetes Surgical History No history of previous surgery (10/11/20) Family History Father CAD (coronary artery disease) 60s quadruple bypass Myelodysplasia (myelodysplastic syndrome) Mother Pacemaker Grandmother Diabetes Denies family history of Lung disease Social History Smoking and tobacco status: former smoker Quit status (tobacco): has quit using tobacco Year quit tobacco: 2-3ppd x 30 years Second hand smoke exposure: Yes Alcohol intake: current Alcohol intake frequency: few times a week Alcohol type: beer Household members: spouse Marital status: Physical Exam Const: COMMON NORMALS: alert GENERAL APPEARANCE: cooperative and well developed HENMT: COMMON NORMALS: normocephalic and atraumatic HEAD & SCALP: normocephalic and atraumatic THROAT: posterior oropharynx normal Eye: COMMON NORMALS: conjunctivae normal CONJUNCTIVA: Yes conjunctivae normal SCLERA: sclerae normal Neck/C-Spine: COMMON NORMALS: supple GENERAL: Yes trachea midline Resp: COMMON NORMALS: normal respiratory effort EFFORT & INSPECTION: Yes able to speak in complete sentences and Yes tachypneic AUSCULTATION: diminished lung sounds Cardio: COMMON NORMALS: regular rate and regular rhythm RATE: regular rate RHYTHM: regular rhythm GI: COMMON NORMALS: Soft to palpation PALPATION: Yes Soft to palpation and No Tenderness to palpation present (GI) PERCUSSION: normal to percussion Extremity: GENERAL: Yes normal exam except as noted and No edema Neuro: COMMON NORMALS: moves all extremities SENSORIUM/ORIENTATION: Yes alert and No Orientation impaired Psych: COMMON NORMALS: mental status grossly normal and Normal thought process present THOUGHT PROCESS: Normal thought process present Course ED course: - Patient was seen and evaluated by me at bedside - Patient placed on cardiac monitors, IV access obtained - Initial evaluation notable for exam as above, patient becomes tachypneic with exertion however no marked respiratory distress on baseline oxygen. -Given persistence of symptoms further evaluation is necessary. - Labs notable for no significant hematologic or metabolic abnormalities to explain patient's symptoms. Negative BNP and negative troponin. - Imaging notable for no lobar consolidation on chest x-ray. - Upon serial reexamination after treatment the patient was similar to improved. - Based on patient history, evaluation, labs, and imaging as interpreted the mos t likely cause of the patient's condition is COPD exacerbation. Patient has plan to follow-up in the morning with communications engineering technician. Treatment ordered for COPD exacerbation - The results of ED evaluation were discussed with the patient including prescriptions and/or symptomatic cares (if applicable) including appropriate and responsible use, followup plan, and return precautions. The patient verbalized understanding and felt safe for discharge. - Patient discharged in satisfactory condition. Note: Click bubbles or prepopulated [place] in note writing are used for assistance with data collection and billing and are inherently more limited than narrative and other text portions of this note. Please use narrative for additional clinical history and defer to narrative/free test for any case of contradictory information. If information appears in only free text or click bubble it should be considered present or absent as reported. Please contact note curriculum writer for clarifications of clinical information or contradictory information. MDM is a brief summary, contradictory or erroneous seeming information should be clarified and full note should be reviewed. Vital Signs: Vital signs: Vital Signs Temperature 98.2 F 06/28/21 19:35 Pulse Rate 84 06/28/21 23:43 Respiratory Rate 18 06/28/21 23:43 Blood Pressure 136/76 06/28/21 23:43 Pulse Oximetry 95 06/28/21 23:43 MDM - SOB/Dyspnea Medical Decision Making 65-year-old gentleman with history of COPD and chronic hypoxic respiratory failure presenting with weeks of worsening shortness of breath and worse symptoms lying down at night. No significant abnormality identified on ED evaluation to explain patient's symptoms. We will plan to treat for COPD exacerbation and patient has follow-up in the morning with pulmonology. Medical Records I reviewed the patient's medical records. Lab Data I reviewed the patient's lab results. : 06/28/21 21:47 06/28/21 21:47 Labs/Radiology: Radiology Impressions Chest X-Ray 06/28/21 19:28 IMPRESSION: No active disease. Laboratory Results WBC 8.6 10^3/uL (4.0-10.0) 06/28/21 21:47 RBC 5.28 10^6/uL (4.1-5.3) 06/28/21 21:47 Hgb 16.0 g/dL (11.7-16.6) 06/28/21 21:47 Hct 47.6 % (42.0-52.0) 06/28/21 21:47 MCV 90.2 fl (80-94) 06/28/21 21:47 MCH 30.3 pg (28.0-34.0) 06/28/21 21:47 MCHC 33.6 g/dL (30.0-36.0) 06/28/21 21:47 RDW 12.5 % (12.1-15.1) 06/28/21 21:47 Plt Count 304 10^3/cmm (130-400) 06/28/21 21:47 MPV 9.7 fL (7.4-10.4) 06/28/21 21:47 Neut % (Auto) 61.7 % 06/28/21 21:47 Lymph % (Auto) 20.0 % 06/28/21 21:47 [place] % (Auto) 7.5 % 06/28/21 21:47 Eos % (Auto) 9.0 % 06/28/21 21:47 Baso % (Auto) 1.6 % 06/28/21 21:47 Neut # (Auto) 5.27 10^3/uL (1.8-7.7) 06/28/21 21:47 Lymph # (Auto) 1.7 10^3/uL (0.8-4.8) 06/28/21 21:47 [place] # (Auto) 0.6 10^3/uL (0.2-0.9) 06/28/21 21:47 Eos # (Auto) 0.8 10^3/uL (0.0-0.8) 06/28/21 21:47 Baso # (Auto) 0.1 10^3/uL (0.0-0.1) 06/28/21 21:47 Nucleated RBC % (auto) 0 % 06/28/21 21: Nucleated RBCs # 0.0 /100WBC 06/28/21 21:47 Specimen Type Arterial 06/28/21 21:31 Sample Site Radial, left 06/28/21 21:31 ABG pH 7.43 (7.35-7.45) 06/28/21 21:31 ABG pCO2 40.7 mmHg (35-45) 06/28/21 21: ABG pO2 90.4 mmHg (80.0-100.0) 06/28/21 21: ABG HCO3 26.9 mmol/L (22-26) H 06/28/21 21: ABG Base Excess 2.4 mmol/L (-2.0-2.0) H 06/28/21 21:31 Kana Test Pos 06/28/21 21:31 Hematocrit 49.7 % (42-52) 06/28/21 21:31 Hgb O2 Saturation 96.1 % (95-100) 06/28/21 21:31 Carboxyhemoglobin 0.9 %THgb (0.4-20.1) 06/28/21 21:31 Methemoglobin 0.8 % (0.4-1.5) 06/28/21 21:31 Total Hemoglobin 16.2 g/dL (14-18) 06/28/21 21:31 O2 Delivery Device Nc 06/28/21 21:31 O2 Liters/Min 3.0 % 06/28/21 21:31 Kennel Manager Dog Track ID Ilana 06/28/21 21:31 Sodium 134 mmol/L (136-145) L 06/28/21 21:47 Potassium 4.3 mmol/L (3.5-5.1) 06/28/21 21:47 Chloride 99 mmol/L (98-107) 06/28/21 21:47 Carbon Dioxide 25 mmol/L (22-29) 06/28/21 21:47 Anion Gap 14.3 (5-19) 06/28/21 21:47 BUN 8 mg/dL (8-23) 06/28/21 21:47 Creatinine 0.7 mg/dL (0.7-1.2) 06/28/21 21:47 GFR Calculation 112.8 mL/min (90-130) 06/28/21 21:47 Glucose 247 mg/dL (65-115) H 06/28/21 21:47 Calculated Osmolality 285 mOsm/kg (285-295) 06/28/21 21:47 Calcium 9.1 mg/dL (8.5-10.5) 06/28/21 21:47 Total Bilirubin 0.3 mg/dL (0.15-1.2) 06/28/21 21:47 AST 13 U/L (0-40) 06/28/21 21:47 ALT 18 U/L (0-41) 06/28/21 21:47 Alkaline Phosphatase 82 IU/L (40-130) 06/28/21 21:47 Troponin T Baseline 8 ng/L (0-15) 06/28/21 21:47 NT-Pro-B Natriuret Pep 21 pg/mL (0-125) 06/28/21 21:47 Total Protein 6.8 g/dL (6.6-8.7) 06/28/21 21:47 Albumin 4.2 g/dL (3.5-5.2) 06/28/21 21:47 Globulin 2.6 g/dL (1.3-4.6) 06/28/21 21:47 Procalcitonin 0.06 ng/mL (0-0.5) 06/28/21 21:47 EKG Data EKG 1: I personally reviewed and interpreted this EKG as follows: EKG Interpretation Date: 07/26/21 EKG interpretation time: 19:55 Interpretation: Twelve-lead EKG shows a regular rhythm at a rate of 87. [place] interval 149, QRS duration 92, QTc 418. Normal axis. Interpretation: Sinus rhythm. Discharge Plan Discharge Patient Disposition: Home Clinical Impression: COPD exacerbation, Sinusitis Condition: Stable Prescriptions: New Augmentin 875-125 mg tablet 1 tab PO BID Qty: 20 0RF No Action fluticasone propionate [Flonase Allergy Relief] 50 mcg/actuation spray,suspension 1 spray intranasal BID Qty: 18 3RF Rx Instructions: administer into each nostril atorvastatin 10 mg tablet 10 mg PO DAILY@1999 0RF aspirin 81 mg Tablet,Delayed Release (Dr/Ec) 81 mg PO DAILY@0700 0RF albuterol sulfate [ProAir HFA] 90 mcg/actuation HFA aerosol inhaler 2 puff INHALATION Q4H PRN (Reason: Wheezing) 0RF insulin lispro [Humalog KwikPen Insulin] 100 unit/mL insulin pen 14 - 16 unit SUBCUT TID 0RF Rx Instructions: PER SLIDING SCALE coQ10 (ubiquinol) 200 mg Capsule 200 mg PO DAILY@1999 0RF Men's 50 Plus Multivitamin 400-20-370 mcg Tablet 1 tab PO DAILY@0700 0RF Toujeo SoloStar U-300 Insulin 300 unit/mL (1.5 mL) insulin pen 36 unit SUBCUT DAILY@0700 0RF Trelegy Ellipta 100-62.5-25 mcg blister with device 1 inh INHALATION DAILY@0700 0RF fexofenadine 60 mg Tablet 180 mg PO DAILY Qty: 30 0RF ipratropium-albuterol 0.5 mg-3 mg(2.5 mg base)/3 mL solution for nebulization 3 ml INHALATION Q6H PRN (Reason: Shortness Of Breath) Qty: 200 0RF Mucinex 1,200 mg tablet extended release 12hr 1,200 mg PO BID Qty: 20 0RF Discharge Orders: Discharge ED (Routine); Ordered 06/28/21 Ordered By: Abiel Santillan Referrals: Anu Tirado MD [Primary Care Provider] - Discharge Diet: Usual diet Discharge Activity: Resume usual activity Patient Instructions: Sinusitis (ED), COPD (Chronic Obstructive Pulmonary Disease) (ED) Activity Restrictions/Additional Instructions: Thank you for visiting the emergency department. You were seen and evaluated for shortness of breath cough, generalized symptoms. Exact cause of your sympt oms is unclear though likely related to exacerbation of underlying COPD and possible bacterial sinusitis. Treatment for COPD exacerbation were also cover antibiotic strange for sinusitis. Please attend your scheduled pulmonology appointment as discussed. Please return to the emergency department for worsening symptoms or anything else that you are concerned about and feel needs emergency department evaluation. Coding Level of Care Code ED Tonguer for Steph Brambila
[2021-06-28 21:44] LABS: ABG PCO2 40.7 mmHg (35-45); ABG PH Result 7.43 (7.35-7.45); Arterial Blood Gas Hematocrit 49.7 % (42-52); Base Excess ABG 2.4 mmol/L (-2.0-2.0); Blood Gas Allen Test Pos; Blood Gas Sample Site Radial, left; Blood Gas Sample Type Arterial; Carboxyhemoglobin 0.9 %THgb (0.4-20.1); HCO3 ABG 26.9 mmol/L (22-26); HGB O2 Sat 96.1 % (95-100); Methemoglobin 0.8 % (0.4-1.5); PO2 ABG 90.4 mmHg (80.0-100.0); Total Hemoglobin 16.2 g/dL (14-18)
[2021-06-28 21:45] LABS: Oxygen Device NC
[2021-06-28 21:53] LABS: Basophils # 0.1 10^3/uL (0.0-0.1); Basophils % 1.6 %; Eosinophils # 0.8 10^3/uL (0.0-0.8); Hematocrit 47.6 % (42.0-52.0); Lymphocytes # 1.7 10^3/uL (0.8-4.8); Mean Corpuscular HGB Conc 33.6 g/dL (30.0-36.0); Mean Corpuscular Hemoglobin 30.3 pg (28.0-34.0); Mean Corpuscular Volume 90.2 fl (80-94); Mean Platelet Volume 9.7 fL (7.4-10.4); Monocytes # 0.6 10^3/uL (0.2-0.9); Monocytes % 7.5 %; Neutrophils # 5.27 10^3/uL (1.8-7.7); Neutrophils % 61.7 %; Nucleated Red Blood Cells % 0 %; Platelet Count 304 10^3/cmm (130-400); Red Blood Count 5.28 10^6/uL (4.1-5.3); Red Cell Distribution Width 12.5 % (12.1-15.1); White Blood Count 8.6 10^3/uL (4.0-10.0)
[2021-06-28 22:14] VITALS: BP 143/75; PULSE 80; RESP 18; O2SAT 96
[2021-06-28 22:18] LABS: Troponin(5th) Baseline 8 ng/L (0-15)
[2021-06-28 22:27] LABS: Alanine Aminotransferase 18 U/L (0-41); Albumin Level 4.2 g/dL (3.5-5.2); Alkaline Phosphatase 82 IU/L (40-130); Anion Gap 14.3 (5-19); Aspartate Amino Transferase 13 U/L (0-40); Blood Urea Nitrogen 8 mg/dL (8-23); Calcium 9.1 mg/dL (8.5-10.5); Carbon Dioxide 25 mmol/L (22-29); Chloride 99 mmol/L (98-107); Globulin 2.6 g/dL (1.3-4.6); Glomerular Filtration Rate 112.8 mL/min (90-130); Glucose 247 mg/dL (65-115); NT Pro B Type Natriuretic Pept 21 pg/mL (0-125); Osmolality Calculated 285 mOsm/kg (285-295); Potassium 4.3 mmol/L (3.5-5.1); Sodium 134 mmol/L (136-145); Total Bilirubin 0.3 mg/dL (0.15-1.2); Total Protein 6.8 g/dL (6.6-8.7)
[2021-06-28 23:09] LABS: Procalcitonin 0.06 ng/mL (0-0.5)
[2021-06-28 23:30] VITALS: BP 110/81; PULSE 80; RESP 17; O2SAT 96
[2021-06-28] MEDS: predniSONE 20 mg Tablet 40 MG PO (23:32)
[2021-06-28] MEDS: amoxicillin-clav 875-125 mg Tablet 1 TAB PO (23:32)
[2021-06-28 23:43] VITALS: BP 136/76; PULSE 84; RESP 18; O2SAT 95
== END 2021-06-28 23:43 | disposition home or self-care (01) ==
PROVIDERS: Emergency Medicine; Emergency Provider Emergency Medicine; PCP Family Medicine
DX: J44.1 Chronic obstructive pulmonary disease with (acute) exacerbation (principal); J32.9 Chronic sinusitis, unspecified; Z79.82 Long term (current) use of aspirin; Z79.4 Long term (current) use of insulin; E11.9 Type 2 diabetes mellitus without complications; E78.5 Hyperlipidemia, unspecified; Z87.891 Personal history of nicotine dependence
CPT/HCPCS: 36415; 36600; 71045; 80053; 82805; 83880; 84145; 84484; 85025; 93005; 99284; J7512

== ENCOUNTER → 2021-12-15 09:52 | Outpatient (BNVA) | payer MEDICARE, SELFPAY | PROVIDERS: PCP Family Medicine; Visit Provider Internal Medicine Pulmonary Disease | DX: J44.9 Chronic obstructive pulmonary disease, unspecified (principal); R59.0 Localized enlarged lymph nodes; R53.81 Other malaise; R06.02 Shortness of breath; Z87.891 Personal history of nicotine dependence; Z99.81 Dependence on supplemental oxygen | CPT/HCPCS: 99214 ==

== ENCOUNTER 2022-02-22 06:00 | Outpatient (RCR) | payer MEDICARE, SELFPAY | END 2022-03-06 23:59 | disposition home or self-care (01) | LOC: MPT 06:00 | PROVIDERS: Visit Provider Internal Medicine Pulmonary Disease | DX: R53.81 Other malaise (principal); J44.9 Chronic obstructive pulmonary disease, unspecified | CPT/HCPCS: 97110; 97161 ==

== ENCOUNTER 2022-03-07 06:00 | Outpatient (RCR) | payer MEDICARE, SELFPAY | END 2022-04-05 23:59 | disposition home or self-care (01) | LOC: MPT 06:00 | PROVIDERS: PCP Internal Medicine; Visit Provider Internal Medicine Pulmonary Disease | DX: R53.81 Other malaise (principal); J44.9 Chronic obstructive pulmonary disease, unspecified | CPT/HCPCS: 97110 ==

== ENCOUNTER 2022-04-06 06:00 | Outpatient (RCR) | payer MEDICARE, SELFPAY | END 2022-05-06 23:59 | disposition home or self-care (01) | LOC: MPT 06:00 | PROVIDERS: PCP Family Medicine; Visit Provider Internal Medicine Pulmonary Disease | DX: R53.81 Other malaise (principal); J44.9 Chronic obstructive pulmonary disease, unspecified | CPT/HCPCS: 97110 ==

== ENCOUNTER 2022-04-10 07:57 | Outpatient (CLI) | payer MEDICARE, SELFPAY ==
--- NOTE | 2022-04-10 08:00 | CT_ITS ---
WS: [id number] CT CHEST TECHNIQUE: Noncontrast CT of the chest with coronal and sagittal reformatted images. CLINICAL INFORMATION: lymphadenopathy COMPARISON: CT chest December 17, 2020 and PET/CT January 01, 2021 DLP: 668.[address] scans at [facility] use at least one of these dose optimization techniques: automated e xposure control; mA and/or kV adjustment per patient size (includes targeted exams where dose is matc hed to clinical indication); or iterative reconstruction. FINDINGS: Moderate to advanced chronic emphysematous changes. No acute pulmonary infiltrates. Slight patchy inf iltrates and atelectasis in the LEFT lower lobe. No focal pneumonia or pleural fluid. Perihilar tree- in-bud infiltrates likely inflammatory. Mild aortic calcification. Slightly ectatic ascending thoracic aorta measuring 3.8 cm unchanged. Norm al descending thoracic aorta. Previously described prominent anterior mediastinal and hilar lymph nod es appears unchanged. No evidence of progression. No axillary lymphadenopathy. No subcarinal lymphade nopathy. Adrenal glands are normal. Normal GE junction. Hypertrophic changes thoracic spine. A few Schmorl's n odes in the mid thoracic spine. CT/CT chest wo con [id number] IMPRESSION: 1. No change in the prominent anterior mediastinal and hilar lymph nodes. 2. Small amount of patchy infiltrates and atelectasis in the LEFT lower lobe. Recommend correlation for pneumonitis. 3. A few tree-in-bud infiltrates in the perihilar regions bilaterally likely i nflammatory. 4. Slightly ectatic ascending thoracic aorta measuring 3.8 cm unchanged. 5. No other significant interval changes.
== END 2022-04-10 07:58 | disposition home or self-care (01) ==
LOC: RAD 08:05
PROVIDERS: PCP Family Medicine; Visit Provider Internal Medicine Pulmonary Disease
DX: R59.0 Localized enlarged lymph nodes (principal)
CPT/HCPCS: 71250

== ENCOUNTER → 2022-05-29 10:04 | Outpatient (BNVA) | payer MEDICARE, SELFPAY | PROVIDERS: PCP Family Medicine; Visit Provider Internal Medicine Pulmonary Disease | DX: R06.02 Shortness of breath (principal); R93.89 Abnormal findings on diagnostic imaging of other specified body structures; R59.0 Localized enlarged lymph nodes; J44.9 Chronic obstructive pulmonary disease, unspecified; Z87.891 Personal history of nicotine dependence; K51.90 Ulcerative colitis, unspecified, without complications; Z99.81 Dependence on supplemental oxygen | CPT/HCPCS: 36415; 82785; 86003; 99214 ==

== ENCOUNTER → 2022-12-13 09:49 | Outpatient (BNVA) | payer MEDICARE, SELFPAY | PROVIDERS: PCP Family Medicine; Visit Provider Internal Medicine Pulmonary Disease | DX: R93.89 Abnormal findings on diagnostic imaging of other specified body structures (principal); R59.0 Localized enlarged lymph nodes; J44.9 Chronic obstructive pulmonary disease, unspecified; J82.83 Eosinophilic asthma; Z87.891 Personal history of nicotine dependence; K51.90 Ulcerative colitis, unspecified, without complications; Z99.81 Dependence on supplemental oxygen | CPT/HCPCS: 99214 ==

== ENCOUNTER → 2023-06-06 08:07 | Outpatient (BNVA) | payer MEDICARE, SELFPAY | PROVIDERS: PCP Family Medicine; Visit Provider Internal Medicine Pulmonary Disease | DX: R93.89 Abnormal findings on diagnostic imaging of other specified body structures (principal); R59.0 Localized enlarged lymph nodes; J44.9 Chronic obstructive pulmonary disease, unspecified; J82.83 Eosinophilic asthma; Z12.2 Encounter for screening for malignant neoplasm of respiratory organs; Z87.891 Personal history of nicotine dependence; J44.89 Other specified chronic obstructive pulmonary disease | CPT/HCPCS: 71046; 99214 ==